=== PATIENT | female | born 2000 | race Caucasian/White ===

== ENCOUNTER 2023-05-28 11:55 | Outpatient (CLI) | payer BC, SELFPAY | END 2023-05-28 11:56 | disposition home or self-care (01) | PROVIDERS: PCP Physician Assistant Medical; Visit Provider Physician Assistant Medical | DX: Z00.00 Encounter for general adult medical examination without abnormal findings (principal); R53.83 Other fatigue; E03.9 Hypothyroidism, unspecified; R42 Dizziness and giddiness | CPT/HCPCS: 80053; 82306; 82607; 84443 ==

== ENCOUNTER 2023-06-17 12:26 | Outpatient (CLI) | payer BC, SELFPAY | END 2023-06-17 12:27 | disposition home or self-care (01) | LOC: NFLDREF 06-20 12:55 | PROVIDERS: PCP Physician Assistant Medical; Referring Provider Physician Assistant Medical; Visit Provider Physician Assistant Medical | DX: K21.9 Gastro-esophageal reflux disease without esophagitis (principal) | CPT/HCPCS: 87338 ==

== ENCOUNTER 2023-07-02 18:43 | Emergency (ER) | payer BC, SELFPAY ==
[2023-07-02 18:56] VITALS: BP 99/68; PULSE 78; RESP 16; TEMP 36.3; O2SAT 99; BMI 28.7
--- NOTE | 2023-07-02 19:21 | CRLHL7_ITS ---
For Patients: As a result of the Cures Act, medical imaging exams and procedure reports are released immediately into your electronic medical record. You may view this report before your referring provider. If you have questions, please contact your health care provider. INDICATION: Chest pain. TECHNIQUE: Chest 2 view. Permanently recorded images are archived. COMPARISON: 04/17/2023 FINDINGS: Cardiovascular and mediastinum: Heart size and vasculature are normal in caliber and appearance. Lungs and pleural spaces: The lungs are clear. No pleural effusion or pneumothorax. Bones and soft tissues: Similar-appearing postoperative changes of extensive posterior spinal fusion. IMPRESSION: No evidence of an acute pulmonary process. Dictated by Otto Miles MD @ 07/02/2023 8:33:40 PM (Electronically Signed)
[2023-07-02 19:38] LABS: Basophils Absolute Auto 0.04 K/uL (0.00-0.30); Basophils Percent Auto 0.6 % (0.0-3.0); Eosinophils Absolute Auto 0.15 K/uL (0.00-0.50); Eosinophils Percent Auto 2.4 % (0.0-7.0); Hematocrit 39.3 % (33.0-51.0); Hemoglobin* 12.5 gm/dL (12.0-16.0); Lymphocytes Absolute Auto 1.65 K/uL (0.90-2.90); Lymphocytes Percent Auto 26.7 % (20-44); Mean Corpuscular HGB Conc 32 gm/dL (32-36); Mean Corpuscular Hemoglobin 30 pg (26-34); Mean Corpuscular Volume 94 fL (80-100); Monocytes Percent Auto 8.9 % (0.0-11.0); Neutrophils Absolute Auto 3.79 K/uL (1.7-7.0); Neutrophils Percent Auto 61.4 % (42.0-72.0); Platelet Count* 228 K/uL (140-440); RDW Coefficient of Variation % 12.6 % (11.5-15.5); Red Blood Count 4.18 m/uL (4.00-5.20); White Blood Count* 6.18 K/uL (4.50-11.00)
[2023-07-02 19:40] LABS: Slide Review Reflex No
[2023-07-02 19:51] LABS: Chloride* 103 mmol/L (96-114)
[2023-07-02 19:52] LABS: Sodium* 140 mmol/L (135-149)
--- NOTE | 2023-07-02 19:52 | ED.GENADULT ---
HPI - General Adult General Date Seen: 07/02/23 Chief complaint: Chest Pain Stated complaint: Chest pain, spreading to jaw and arm Time Seen by Provider: 07/02/23 19:06 Source: patient Mode of arrival: ambulatory Limitations: no limitations History of Present Illness HPI narrative: Patient is a 23-year-old female with history of anxiety, GERD, PCOS, scoliosis presenting to the emergency department for chest pain. She says chest pain is been going on since last at that time she was seen by primary care provider and was given a Holter monitor. She states she is supposed to get the results today but never heard back from them. States has been intermittent in nature it is midsternal with occasional radiation to her left jaw and left arm. She says currently there is no radiation to the jaw but she does feel it in her left arm. Denies ever having symptoms like this before. She is not on any control. She has no history of blood clots or cancer. Has had no recent surgeries or travel. States it is tender to palpation but she does note that the pain was she pushes on it is different. Does have some mild pain with deep breaths. Denies fevers, chills, abdominal pain, nausea, vomiting, weakness, numbness, lightheadedness, dizziness. Related Data Previous Rx's Medication Instructions Recorded hydroxyzine HCl 25 mg tablet 25 - 50 mg (1 - 2 x 25 mg) PO 05/28/23 Q4-6H PRN anxiety #30 tabs bupropion HCl 150 mg 24 hr tablet, 150 mg PO QAM #30 tabs 06/13/23 extended release omeprazole 20 mg capsule,delayed 20 mg PO QDAY #90 caps 06/13/23 release Allergies Allergy/AdvReac Type Severity Reaction Status Date / Time nickel Allergy Verified 07/02/23 19:03 Review of Systems Status of ROS: Reports: 10 or more systems reviewed and unremarkable except as noted in History and below [facility] Medical History Hypothyroidism ?E03.9 - Hypothyroidism, unspecified (ICD-10) Nausea ?R11.0 - Nausea (ICD-10) Constipation ?K59.00 - Constipation, unspecified (ICD-10) Abdominal pain ?R10.9 - Unspecified abdominal pain (ICD-10) Chest pain ?R07.9 - Chest pain, unspecified (ICD-10) History of pilonidal cyst (2016) ?Z87.2 - Personal history of diseases of the skin and subcutaneous tissue (ICD-10) History of metrorrhagia ?Z87.42 - Personal history of other diseases of the female genital tract (ICD-10) Surgical History History of fusion of spine for scoliosis (01/01/18) ?Z98.1 - Arthrodesis status (ICD-10) ?Z87.39 - Personal history of other diseases of the musculoskeletal system and connective tissue (ICD-10) Family History Father Diabetes Coronary artery disease Mother Hx of cholecystectomy Social History Smoking Status: Never smoker Do you use any of these nicotine containing products: None Second hand tobacco smoke exposure: No How often do you have a drink containing alcohol: never AUDIT-C Alcohol total score: 0 Non-prescribed substance use: denies use Little interest or pleasure in doing things: not at all Feeling down, depressed, or hopeless: several days service: No Exam Narrative: Exam Narrative: Const: Well-nourished, Well-developed, in mild distress Eyes: PERRL, no conjunctival injection, and symmetrical lids ENMT: Atraumatic external nose and ears. Moist mucous membranes. Neck: Symmetric, trachea midline, No thyromegaly. CVS: RRR, No murmurs or gallops. Peripheral pulses 2+ and equal in all extremities RESP: Unlabored respiratory effort. Clear to auscultation bilaterally. GI: Nontender/Nondistended, No rebound or guarding. MSK:Extremities w/o deformity, Normal Active ROM. Mild tenderness to palpation of the chest Skin: Warm, Dry. No rashes or lesions. Neuro: Normal Muscle tone, No focal neurological deficits. Psych: Awake, Alert, & Oriented x3. Appropriate mood and affect. Const: Vital Signs, click to edit/add: Vital Signs - 24 hr 07/02/23 18:56 07/02/23 20:32 07/02/23 21:01 Temperature 97.4 F L Pulse Rate 76 78 Pulse Rate [Pulse Oximeter] 78 Respiratory Rate 16 16 16 Blood Pressure 101/68 103/66 Blood Pressure [Ri ght Upper Arm] 99/68 Pulse Oximetry 99 98 96 Oxygen Delivery Me thod Room Air Course Vital Signs Vital signs: Initial Vital Signs Temperature 97.4 F L 07/02/23 18:56 Temperature Source Temporal Artery Scan 07/02/23 18:56 Pulse Rate 78 07/02/23 18:56 Respiratory Rate 16 07/02/23 18:56 Blood Pressure 99/68 07/02/23 18:56 Blood Pressure Mean 78 07/02/23 18:56 Blood Pressure Position Sitting 07/02/23 18:56 Pulse Oximetry 99 07/02/23 18:56 Oxygen Delivery Method Room Air 07/02/23 18:56 Vital Signs Temperature 97.4 F L 07/02/23 18:56 Pulse Rate 78 07/02/23 18:56 Respiratory Rate 16 07/02/23 18:56 Blood Pressure 99/68 07/02/23 18:56 Pulse Oximetry 99 07/02/23 18:56 Oxygen Delivery Method Room Air 07/02/23 18:56 Temperature 97.4 F L 07/02/23 18:56 Pulse Rate 78 07/02/23 21:01 Respiratory Rate 16 07/02/23 21:01 Blood Pressure 103/66 07/02/23 21:01 Pulse Oximetry 96 07/02/23 21:01 Oxygen Delivery Method Room Air 07/02/23 18:56 Medical Decision Making MDM Narrative Medical decision making narrative: Patient is a 23-year-old female presented emergency depart for chest pain. Symptoms have been gone for the past 4 days. She had a Holter monitor and was waiting for the results of it today. Pain has radiated to her left arm and left jaw. Has been intervention in nature but has been more consistent over the past few hours. She has not taken anything for the pain. She also states she has not want any pain medication. She is Perc negative and PE is unlikely so D-dimer was not necessary at this time. CBC, BMP, troponin, EKG are all ordered. Since the pain is almost near her epigastric region also ordered a lipase. EKG returned showing no concerning abnormalities. Chest x-ray showed no concerning abnormalities and pneumothorax is unlikely. Vital signs are stable. Lipase was within normal limits and pancreatitis is unlikely. Patient's lab work ovaries returned showing no concerning abnormalities. Is unclear what was causing chest pain at this time. She does have some tenderness to palpation impression and chest but she states this was not exactly the same. Could be a costochondritis was unlikely to be ACS at this time. She will be discharged home. She is agreeable to this plan. Lab Data Labs: Lab Results 07/02/23 Range/Units 19:30 WBC 6.18 (4.50-11.00) K/uL RBC 4.18 (4.00-5.20) m/uL Hgb 12.5 (12.0-16.0) gm/dL Hct 39.3 (33.0-51.0) % MCV 94 (80-100) fL MCH 30 (26-34) pg MCHC 32 (32-36) gm/dL RDW Coeff of Davey 12.6 (11.5-15.5) % Plt Count 228 (140-440) K/uL Neut % (Auto) 61.4 (42.0-72.0) % Lymph % (Auto) 26.7 (20-44) % Vance % (Auto) 8.9 (0.0-11.0) % Eos % (Auto) 2.4 (0.0-7.0) % Baso % (Auto) 0.6 (0.0-3.0) % Neut # (Auto) 3.79 (1.7-7.0) K/uL Lymph # (Auto) 1.65 (0.90-2.90) K/uL Vance # (Auto) 0.60 (0.00-0.90) K/UL Eos # (Auto) 0.15 (0.00-0.50) K/uL Baso # (Auto) 0.04 (0.00-0.30) K/uL Abs Immat Gran (auto) 0.00 (0.00-0.30) K/uL Imm/Tot Granulo (auto) 0.0 % Sodium 140 (135-149) mmol/L Potassium 4.0 (3.6-5.1) mmol/L Chloride 103 (96-114) mmol/L Carbon Dioxide 29 (20-32) mmol/L Anion Gap 8 (7-15) mEq/L BUN 13 (5-24) mg/dL Creatinine 0.6 (0.5-1.5) mg/dL Estimated Creat Clear 114.35 Estimated GFR 128 ml/min Glucose 89 (60-115) mg/dL Calcium 9.2 (8.4-10.6) mg/dL Troponin I < 0.01 L (0.01-0.04) ng/mL Lipase 102 (23-300) U/L Imaging Data Chest x-ray: Radiologist's impression: INDICATION: Chest pain. TECHNIQUE: Chest 2 view. Permanently recorded images are archived. COMPARISON: 04/17/2023 FINDINGS: Cardiovascular and mediastinum: Heart size and vasculature are normal in caliber and appearance. Lungs and pleural spaces: The lungs are clear. No pleural effusion or pneumothorax. Bones and soft tissues: Similar-appearing postoperative changes of extensive posterior spinal fusion. IMPRESSION: No evidence of an acute pulmonary process. Dictated by Otto Miles MD @ 07/02/2023 8:33:40 PM ECG Data Attestation: I personally reviewed and interpreted this ECG as follows: Prior ECG tracings: available for review (06/28/23) Interpretation: Normal sinus rhythm, rate of 79 beats per minute, normal axis, normal intervals, no ST or T-wave abnormalities. appears similar to previous EKGs Discharge Plan Discharge Clinical Impression: Atypical chest pain Patient Disposition: Home, Self-Care Condition: Stable Instructions: Noncardiac Chest Pain (ED) Additional Instructions: Take Tylenol and ibuprofen for pain. Follow up with the primary care provider about the results of the Holter monitor. Return for new worsening symptoms. Prescriptions: No Action hydroxyzine HCl 25 mg tablet 25 - 50 mg PO Q4-6H PRN (Reason: anxiety) Qty: 30 0RF Hold Instructions: Pt stopped Rx Instructions: take 1-2 tablets every 4-6 hours as needed for anxiety bupropion HCl 150 mg tablet extended release 24 hr 150 mg PO QAM Qty: 30 0RF Hold Instructions: Pt stopped omeprazole 20 mg capsule,delayed release(DR/EC) 20 mg PO QDAY Qty: 90 0RF Hold Instructions: Pt stopped Follow Up/Referrals: Marilia Uriostegui PA-C [Primary Care Provider] - Stand Alone Forms: [facility] Info Instructions
[2023-07-02 19:54] LABS: Creatinine* 0.6 mg/dL (0.5-1.5); Est. Creatinine Clearance* 114.35; Estimated Glomerular Filt Rate 128 ml/min
[2023-07-02 19:55] LABS: Anion Gap 8 mEq/L (7-15); Blood Urea Nitrogen* 13 mg/dL (5-24); Calcium* 9.2 mg/dL (8.4-10.6); Carbon Dioxide* 29 mmol/L (20-32); Glucose* 89 mg/dL (60-115); Lipase* 102 U/L (23-300)
[2023-07-02 20:15] LABS: Troponin I* < 0.01 ng/mL (0.01-0.04)
[2023-07-02 20:32] VITALS: BP 101/68; PULSE 76; RESP 16; O2SAT 98
[2023-07-02 21:01] VITALS: BP 103/66; PULSE 78; RESP 16; O2SAT 96
== END 2023-07-02 21:22 | disposition home or self-care (01) ==
PROVIDERS: Emergency Provider Student in an Organized Health Care Education/Training Program; PCP Physician Assistant Medical
DX: R07.9 Chest pain, unspecified (principal)
CPT/HCPCS: 36415; 71046; 80048; 83690; 84484; 85025; 93005; 99283; 99284

== ENCOUNTER 2023-07-24 13:45 | Outpatient (CLI) | payer BC, SELFPAY ==
[2023-07-24 14:37] VITALS: BP 130/52; PULSE 96; RESP 18
--- NOTE | 2023-07-24 14:45 | W.PM.STED ---
Stress Test Note Date Date of test: 07/24/23 Providers Primary care provider: Marilia Uriostegui Stress test physician: Akshat Martinez Stress Test Note Stress test ordered: Stress Echo Indication for test: Fatigue and Shortness of breath Stress test medicine: None Results discussion: Patient is a very nice 23-year-old female who presents for the above test after discussion the risks benefits and side effects she would like to proceed pretest EKG shows normal sinus rhythm, with a ventricular rate of 67. Cardiac stress test medical history form is reviewed entirely. Following normal Michael protocol patient is exercised for a 10 minute period. EKG portion did not show exactly that she got to target, but I can not tell you that it was not picking up because of artifact, and she did get to target rate of 170. Test is terminated because of fatigue, and leg pain. He conditioning was felt to be good. No evidence of any significant dysrhythmias, there is no evidence of any significant ST wave changes suggestive of ischemia. Impression: Negative electrographic portion of stress echo Follow up suggested: Await echo images, pulmonary read via the tech is negative. Cardiology will review, clinical correlation with this will be needed, patient recovered normally will be discharged following meeting criteria.
== END 2023-07-24 14:42 | disposition home or self-care (01) ==
LOC: STRESS 13:46
PROVIDERS: PCP Physician Assistant Medical; Visit Provider Family Medicine
DX: R07.9 Chest pain, unspecified (principal); R06.02 Shortness of breath; R42 Dizziness and giddiness
CPT/HCPCS: 93016; 93325; 93351

== ENCOUNTER 2023-10-10 14:38 | Outpatient (CLI) | payer BC, SELFPAY | END 2023-10-10 14:39 | disposition home or self-care (01) | PROVIDERS: PCP Physician Assistant Medical; Visit Provider Physician Assistant Medical | DX: R53.83 Other fatigue (principal); D49.89 Neoplasm of unspecified behavior of other specified sites; R10.9 Unspecified abdominal pain; R00.0 Tachycardia, unspecified | CPT/HCPCS: 82728; 83516; 86364; 86617 ==

== ENCOUNTER 2023-10-17 13:48 | Outpatient (CLI) | payer BC, SELFPAY ==
--- NOTE | 2023-10-17 14:00 | CRLHL7_ITS ---
For Patients: As a result of the Century Cures Act, medical imaging exams and procedure reports are released immediately into your electronic medical record. You may view this report before your referring provider. If you have questions, please contact your health care provider. Indication: PALPABLE LUMP Technique: Grayscale and color Doppler ultrasound of the right submandibular region. Comparison: None Findings: Solid circumscribed hypoechoic nodule with posterior shadowing in the subcutaneous tissues measuring 1.2 x 0.7 x 1.0 cm. There may be calcifications associated with this lesion. No abnormal vascularity Impression: 1.2 cm solid nodule located within the subcutaneous fat of the right submandibular space just beneath the skin. ENT referral recommended. Dictated by Tito Nunez MD @ 10/17/2023 2:51:13 PM (Electronically Signed)
== END 2023-10-17 13:49 | disposition home or self-care (01) ==
LOC: US 13:48
PROVIDERS: PCP Physician Assistant Medical; Visit Provider Physician Assistant Medical
DX: R22.1 Localized swelling, mass and lump, neck (principal); D49.89 Neoplasm of unspecified behavior of other specified sites
CPT/HCPCS: 76536

== ENCOUNTER 2023-11-14 10:07 | Outpatient (CLI) | payer BC, SELFPAY ==
--- NOTE | 2023-11-14 10:15 | CRLHL7_ITS ---
For Patients: As a result of the Century Cures Act, medical imaging exams and procedure reports are released immediately into your electronic medical record. You may view this report before your referring provider. If you have questions, please contact your health care provider. INDICATION: swallowing delay, globulus sensation, DYSPHAGIA TECHNIQUE: Modified barium swallow. Fluoroscopic time 63 seconds. FINDINGS/IMPRESSION: Decreased initiation of the swallowing mechanism with discoordination of the tongue. Normal soft palate and epiglottis. No diverticulum or stricture. No obstruction. No episodes of penetration or aspiration. Inability to swallow pill. Dictated by Tito Nunez MD @ 11/14/2023 10:45:05 AM (Electronically Signed)
--- NOTE | 2023-11-14 14:36 | SLP.EVAL ---
Marilia Please review, sign and return. Thank you Yasmin Wheat, CALL OR CONTACT CENTRE COACH CALL OR CONTACT CENTRE COACH Paul Miller Start: 11/14/23 11:02 Freq: Status: Active Protocol: Document 11/14/23 11:02 Klarissa (Rec: 11/14/23 11:19 [facility] [id number]) E-signed By Yasmin Wheat CCC, CALL OR CONTACT CENTRE COACH CALL OR CONTACT CENTRE COACH System Review History & Reason For Referral Type of Speech Evaluation Modified Barium Swallow Evaluation Rehabilitation Order Evaluation Date of Order 11/08/23 Reason for Referral Difficulty swallowing Medical Diagnosis Dysphagia Treatment Diagnosis Dysphagia Vision Information Vision Status Patient wears glasses Patient Orientation Orientation & Mental Status Within normal limits CALL OR CONTACT CENTRE COACH Initial Assessment/POC Subjective Information Subjective/Pain Comment Patient independently ambulated to the xray suite. She is pleasant and cooperative. Assessment & Impression Assessment/Impression Patient is a 23 year old female referred for a modified barium swallow study due to difficulty swallowing. She reports that she mostly has difficulty with liquid. She holds it in her mouth and has difficulty initiating a swallow. She has difficulty also with pills so has gone to either gummies or liquid. She has tried taking pills with pudding but she ends up swallowing the pudding and the pill is still in her mouth. She doesn't notice difficulty with foods. She reports she has fairly severe reflux and sometimes feels burning in her throat. She reports that the swallowing difficulty has been going on since March and denies anything that happened about that time. She had back surgery about 6 years ago. ORAL MOTOR FUNCTION AND DENTITION Patient able to move tongue and lips adequately and has adequate natural dentition. THIN LIQUID Patient tried a couple of trials of thin liquids. Both times she needed to swallow piecemeal 4-6 times to clear. No penetration, aspiration or pharyngeal residue on any trial. MILDLY THICK LIQUID (NECTAR) Mildly thick liquid was trialed to see if the viscosity and weight would help. It did not. She still needed to swallow 4-6 times. PUREE Patient given a teaspoon of puree. She was able to swallow with no penetration, aspiration or residue. MUFFIN AND COOKIE WITH BARIUM PUREE Patient given separate trials of muffin and cookie each mixed with barium puree. She was able to chew and swallow in a timely manner and exhibited no penetration, aspiration or pharyngeal residue. BARIUM PILL WITH PUREE Patient given a barium pill with yogurt. She was able to move the pill posteriorly but was not able to swallow it and spit it out. IMPRESSIONS AND RECOMMENDATIONS Patient exhibits difficulty initiating a swallow with liquids and needs to swallow 4 -6 times to get the bolus down . She was able to initiate a swallow when eating foods. There is no penetration, aspiration or pharyngeal residue with any consistency. No tongue pumping noted. Recommended to patient that she try liquids of different temperatures and different flavors to see if this helps with swallow initiation. She reports that when she chews she is able to start a swallow more easily when she takes liquid while food is in her mouth so recommend she take liquid when taking food. It is unclear why this is happening . Images and recommendations shared with patient. Therapist Signature & License # I Certify That Therapy Services Provided Therapist Signature & License Number Yasmin Wheat, [facility]-CALL OR CONTACT CENTRE COACH, # [id number] Physician Signature Signature of Physician Indicates Medically Needed Services Physician Signature & Date Required Please Sign/Date Here Speech/Language Pathology Billing Units Billing Units Eval Swallow Motion Fluoro 1
== END 2023-11-14 10:08 | disposition home or self-care (01) ==
LOC: RAD 10:09
PROVIDERS: PCP Physician Assistant Medical; Visit Provider Physician Assistant Medical
DX: R13.10 Dysphagia, unspecified (principal)
CPT/HCPCS: 74230; 92611

== ENCOUNTER 2023-11-15 10:23 | Outpatient (RCR) | payer BC, SELFPAY ==
--- NOTE | 2023-11-15 14:13 | SLP.EVAL ---
Marilia Please review, sign and return Thank you Yasmin Wheat, SURVEY ANALYST SURVEY ANALYST Paul Miller Start: 11/15/23 11:22 Freq: Status: Active Protocol: Document 11/15/23 11:23 [facility] (Rec: 11/15/23 11:32 [facility] [id number]) E-signed By Yasmin Wheat, WILI, SURVEY ANALYST SURVEY ANALYST System Review History & Reason For Referral Type of Speech Evaluation Dysphagia Evaluation Rehabilitation Order Evaluation and Treat Onset Date Of Patient's Problem 11/14/23 Medical Diagnosis Dysphagia Treatment Diagnosis Dysphagia Vision Information Vision Status Patient wears glasses. Patient Orientation Orientation & Mental Status Within normal limits SURVEY ANALYST Initial Assessment/POC Subjective Information Subjective/Pain Comment Patient independently ambulated to the therapy room. Assessment & Impression Assessment/Impression Patient is a 23 year old female referred for some swallowing therapy following a modified barium swallow study yesterday completed with this therapist. The barium swallow showed that the pharyngeal swallow was normal and safe and no penetration, aspiration or pharyngeal residue occurred. Patient was able to initiate a swallow with solids but with liquids it was delayed and she needed to swallow 4-6 times to clear the bolus from her mouth. This started in March 2023, first noticed when patient and her mom attended a 4 day outside concert. ORAL MOTOR FUNCTION Patient able to adequately move tongue and lips. There is no evidence of tongue thrusting or tongue incoordination. THIN LIQUID Today she reports that when she drinks liquids it tends to over flow into her cheeks. Tried several different strategies 1) different temperatures 2)different flavors 3)using a straw 4) keeping the bolus contained on her tongue and then swallow. Patient was able to initiate a swallow more quickly by using a straw and by containing the bolus on her tongue. IMPRESSIONS AND RECOMMENDATIONS Patient was able to initiate a swallow more quickly and with one swallow by using a straw and/or by containing the bolus on her tongue vs letting it flow over into her cheeks before swallowing. These techniques were practiced several times and patient felt confident in doing them herself. Will follow up with patient by phone in one week. Functional Limitations & Outcome/Goals Goals/Functional Outcomes Patient will be able to initiate a swallow with liquids without needing to swallow multiple times. Intervention Plan & Frequency Intervention Plan Several strategies were trialed and the two that seemed to work the best were using a straw and thinking about keeping the bolus in the center of her mouth instead of letting it flow over to her cheeks. With both those strategies she was able to swallow the bolus in one swallow and initiated a swallow faster. These strategies were practiced several times and patient felt confident to do them on her own. Will follow up with patient by phone at the end of next week . Therapist Signature & License # I Certify That Therapy Services Provided Therapist Signature & License Number Yasmin Wheat, [facility], # [id number] Physician Signature Signature of Physician Indicates Medically Needed Services Physician Signature & Date Required Please Sign/Date Here Speech/Language Pathology Billing Units Billing Units Treat Swallow Dysfunction 1
== END 2024-03-14 23:59 | disposition home or self-care (01) ==
PROVIDERS: PCP Physician Assistant Medical; Visit Provider Physician Assistant Medical
DX: R13.10 Dysphagia, unspecified (principal); Z51.89 Encounter for other specified aftercare
CPT/HCPCS: 92526

== ENCOUNTER 2023-12-04 07:41 | Outpatient (CLI) | payer BC, SELFPAY ==
--- NOTE | 2023-12-04 08:55 | W.ANESCHARGE ---
Anesthesia Charges Start Date/Time Anesthesia Start Date: 12/04/23 Anesthesia Start Time: 08:30 Stop Date/Time Anesthesia Stop Date: 12/04/23 Anesthesia Stop Time: 08:47
--- NOTE | 2023-12-04 09:41 | W.ANESCHARGE ---
Anesthesia Charges Start Date/Time Anesthesia Start Date: 12/04/23 Anesthesia Start Time: 08:30 Stop Date/Time Anesthesia Stop Date: 12/04/23 Anesthesia Stop Time: 08:47
== END 2023-12-04 07:42 | disposition home or self-care (01) ==
LOC: OP CLINIC 07:42
PROVIDERS: PCP Physician Assistant Medical; Visit Provider Internal Medicine
DX: R12 Heartburn (principal); R10.13 Epigastric pain
CPT/HCPCS: 00731; 43239; 88305; J2704

== ENCOUNTER 2023-12-17 09:08 | Outpatient (CLI) | payer BC, SELFPAY | END 2023-12-17 09:09 | disposition home or self-care (01) | LOC: NFLDREF 12-19 11:34 | PROVIDERS: PCP Physician Assistant Medical; Referring Provider Physician Assistant Medical; Visit Provider Physician Assistant Medical | DX: R10.2 Pelvic and perineal pain (principal) | CPT/HCPCS: 87086 ==

== ENCOUNTER 2024-01-21 11:09 | Outpatient (CLI) | payer BC, SELFPAY | END 2024-01-21 11:10 | disposition home or self-care (01) | PROVIDERS: PCP Physician Assistant Medical; Visit Provider Physician Assistant Medical | DX: R00.0 Tachycardia, unspecified (principal) | CPT/HCPCS: 82088; 82533; 83835 ==

== ENCOUNTER 2024-02-19 00:18 | Emergency (ER) | payer BC, SELFPAY ==
[2024-02-19] VITALS (22 sets, daily range): BP systolic 104–117; BP diastolic 52–75; PULSE 46–67; RESP 16–18; TEMP 36.5; O2SAT 95–98; BMI 32.0
--- NOTE | 2024-02-19 00:34 | ED_ITS ---
HPI - General Adult General Chief complaint: Chest Pain Stated complaint: chest pain Time Seen by Provider: 02/19/24 00:20 History of Present Illness HPI narrative: patient reports chest pain starting around 2300, also feels dizzy. denies SOB or diaphoresis, has in the past had chest pain that usually just resolves on its own, has never been dx with any cardiac problems. pain is in med chest , constant, pressure, rated 8/10. recently started on prednisone and albuterol for bronchitis, seen at [facility] last sunday. 23 year old young woman presenting with her father with concern of mid chest pressure that has been ongoing now for a couple of hours. Was seen with some cough symptoms and chest pain 2 and half days ago and was given a course of prednisone with diagnosis of bronchitis. Reports few months ago having had a stress test. Over the last year has been experiencing intermittent episodes of chest pain. Which she is feeling today that was different ?never like this?. She is frequently lightheaded. Review of records would indicate some positional lightheadedness. She is currently unemployed and working around the home though causes her to feel particularly fatigued. She has been more troubled by this over the last couple of days. Denies a history of anemia. Menses are not unusually heavy. She does note that her heart rate has been today as noted by her watch to be going below 40. She has had heart rates around 45 or so before. No leg pain or swelling. She does acknowledge that she has passed out a few times in the past. Nothing recent. She suspect often has simply been dehydrated noting that she has trouble getting enough fluids in. Father notes family history positive for cardiovascular disease and an uncle maybe with valvular replacement. No sudden cardiac or arrhythmias. Related Data Previous Rx's Medication Instructions Recorded hydroxyzine HCl 25 mg tablet 25 - 50 mg (1 - 2 x 25 mg) PO 05/28/23 Q4-6H PRN anxiety #30 tabs omeprazole 20 mg capsule,delayed 20 mg PO QDAY #90 caps 10/17/23 release dexamethasone 1 mg tablet 1 mg PO QDAY #1 tab 02/05/24 norelgestromin 150 mcg-e.estradiol 1 patch transdermal Q7D #3 ea 02/08/24 35 mcg/24 hr weekly transderm patch (Xulane) albuterol sulfate 90 mcg/actuation 2 puff inhalation Q6H PRN 02/15/24 aerosol inhaler shortness of breath or wheezing #6.7 grams amoxicillin 400 mg/5 mL oral 800 mg (10 mL) PO BID #200 mL 02/15/24 suspension cetirizine 10 mg chewable tablet 10 mg PO QDAY PRN allergy symptoms 02/15/24 (Zyrtec) #30 tabs prednisone 20 mg tablet 20 mg PO BID #10 tabs 02/15/24 Allergies Allergy/AdvReac Type Severity Reaction Status Date / Time nickel Allergy Verified 02/15/24 11:30 Review of Systems Status of ROS: Reports: 6 or more systems reviewed and unremarkable except as noted in History and below [facility] Medical History Hypothyroidism ?E03.9 - Hypothyroidism, unspecified (ICD-10) Nausea ?R11.0 - Nausea (ICD-10) Constipation ?K59.00 - Constipation, unspecified (ICD-10) Abdominal pain ?R10.9 - Unspecified abdominal pain (ICD-10) Chest pain ?R07.9 - Chest pain, unspecified (ICD-10) History of pilonidal cyst (2016) ?Z87.2 - Personal history of diseases of the skin and subcutaneous tissue (ICD-10) History of metrorrhagia ?Z87.42 - Personal history of other diseases of the female genital tract (ICD-10) Surgical History History of fusion of spine for scoliosis (01/01/18) ?Z98.1 - Arthrodesis status (ICD-10) ?Z87.39 - Personal history of other diseases of the musculoskeletal system and connective tissue (ICD-10) Family History Father Diabetes Coronary artery disease Mother Hx of cholecystectomy Social History Smoking Status: Never smoker Do you use any of these nicotine containing products: None Second hand tobacco smoke exposure: No How often do you have a drink containing alcohol: never AUDIT-C Alcohol total score: 0 Non-prescribed substance use: denies use Little interest or pleasure in doing things: several days Feeling down, depressed, or hopeless: not at all service: No Exam Narrative: Exam Narrative: Pleasant. Seems tired. A little slower in communication simply as if fatigued. Hair is bright pink. Piercing in the nasal septum. Skin is warm and dry without apparent rash. Extremities are without edema. She is well-perfused. Cranial nerves 2-12 intact. Subjectively lightheaded or wanting to lay back down when I asked her to sit up. Heart is bradycardic or slowed regular rhythm. There is a split S2. No murmur. Abdomen is soft and nontender. Lungs are clear. She is sore to palpation in the mid sternum but indicates that pain is not exclusive to this spot. Back is with extensive midline surgical scar--reportedly from surgical correction of scoliosis Const: Vital Signs, click to edit/add: Vital Signs - 24 hr 02/19/24 00:30 02/19/24 01:02 02/19/24 01:20 Temperature 97.7 F Pulse Rate Pulse Rate [Pulse Oximeter] 54 L Pulse Rate [orthos tatic lying Right Pulse Oximeter] 57 L Pulse Rate [orthos tatic sitting Righ t Pulse Oximeter] 53 L Pulse Rate [orthos tatic standing Rig ht Pulse Oximeter] 62 Respiratory Rate 16 Blood Pressure Blood Pressure [Ri ght Upper Arm] 117/75 Blood Pressure [or thostatic lying Le ft Arm] 107/67 Blood Pressure [or thostatic sitting Left Arm] 111/64 Blood Pressure [or thostatic standing Left Arm] 104/63 Pulse Oximetry 97 97 Oxygen Delivery Me thod Room Air 02/19/24 01:29 02/19/24 01:30 02/19/24 01:31 Temperature Pulse Rate 58 L 50 L 53 L Pulse Rate [Pulse Oximeter] Pulse Rate [orthos tatic lying Right Pulse Oximeter] Pulse Rate [orthos tatic sitting Righ t Pulse Oximeter] Pulse Rate [orthos tatic standing Rig ht Pulse Oximeter] Respiratory Rate 18 Blood Pressure 107/63 Blood Pressure [Ri ght Upper Arm] Blood Pressure [or thostatic lying Le ft Arm] Blood Pressure [or thostatic sitting Left Arm] Blood Pressure [or thostatic standing Left Arm] Pulse Oximetry 96 96 95 Oxygen Delivery Me thod Room Air 02/19/24 01:32 02/19/24 01:45 02/19/24 01:50 Temperature Pulse Rate 53 L 58 L 56 L Pulse Rate [Pulse Oximeter] Pulse Rate [orthos tatic lying Right Pulse Oximeter] Pulse Rate [orthos tatic sitting Righ t Pulse Oximeter] Pulse Rate [orthos tatic standing Rig ht Pulse Oximeter] Respiratory Rate Blood Pressure Blood Pressure [Ri ght Upper Arm] Blood Pressure [or thostatic lying Le ft Arm] Blood Pressure [or thostatic sitting Left Arm] Blood Pressure [or thostatic standing Left Arm] Pulse Oximetry 95 96 97 Oxygen Delivery Me thod 02/19/24 01:55 02/19/24 02:02 02/19/24 02:03 Temperature Pulse Rate 57 L 67 55 L Pulse Rate [Pulse Oximeter] Pulse Rate [orthos tatic lying Right Pulse Oximeter] Pulse Rate [orthos tatic sitting Righ t Pulse Oximeter] Pulse Rate [orthos tatic standing Rig ht Pulse Oximeter] Respiratory Rate Blood Pressure 107/52 L Blood Pressure [Ri ght Upper Arm] Blood Pressure [or thostatic lying Le ft Arm] Blood Pressure [or thostatic sitting Left Arm] Blood Pressure [or thostatic standing Left Arm] Pulse Oximetry 98 95 96 Oxygen Delivery Me thod 02/19/24 02:05 02/19/24 02:26 02/19/24 02:30 Temperature Pulse Rate 56 L 59 L 56 L Pulse Rate [Pulse Oximeter] Pulse Rate [orthos tatic lying Right Pulse Oximeter] Pulse Rate [orthos tatic sitting Righ t Pulse Oximeter] Pulse Rate [orthos tatic standing Rig ht Pulse Oximeter] Respiratory Rate Blood Pressure Blood Pressure [Ri ght Upper Arm] Blood Pressure [or thostatic lying Le ft Arm] Blood Pressure [or thostatic sitting Left Arm] Blood Pressure [or thostatic standing Left Arm] Pulse Oximetry 95 96 97 Oxygen Delivery Me thod 02/19/24 02:34 02/19/24 02:45 02/19/24 03:00 Temperature Pulse Rate 60 55 L 46 L Pulse Rate [Pulse Oximeter] Pulse Rate [orthos tatic lying Right Pulse Oximeter] Pulse Rate [orthos tatic sitting Righ t Pulse Oximeter] Pulse Rate [orthos tatic standing Rig ht Pulse Oximeter] Respiratory Rate Blood Pressure Blood Pressure [Ri ght Upper Arm] Blood Pressure [or thostatic lying Le ft Arm] Blood Pressure [or thostatic sitting Left Arm] Blood Pressure [or thostatic standing Left Arm] Pulse Oximetry 98 96 96 Oxygen Delivery Me thod 02/19/24 03:04 02/19/24 03:05 02/19/24 03:37 Temperature Pulse Rate 48 L 48 L 58 L Pulse Rate [Pulse Oximeter] Pulse Rate [orthos tatic lying Right Pulse Oximeter] Pulse Rate [orthos tatic sitting Righ t Pulse Oximeter] Pulse Rate [orthos tatic standing Rig ht Pulse Oximeter] Respiratory Rate Blood Pressure Blood Pressure [Ri ght Upper Arm] Blood Pressure [or thostatic lying Le ft Arm] Blood Pressure [or thostatic sitting Left Arm] Blood Pressure [or thostatic standing Left Arm] Pulse Oximetry 96 96 97 Oxygen Delivery Me thod Room Air 02/19/24 03:45 Temperature Pulse Rate 54 L Pulse Rate [Pulse Oximeter] Pulse Rate [orthos tatic lying Right Pulse Oximeter] Pulse Rate [orthos tatic sitting Righ t Pulse Oximeter] Pulse Rate [orthos tatic standing Rig ht Pulse Oximeter] Respiratory Rate Blood Pressure Blood Pressure [Ri ght Upper Arm] Blood Pressure [or thostatic lying Le ft Arm] Blood Pressure [or thostatic sitting Left Arm] Blood Pressure [or thostatic standing Left Arm] Pulse Oximetry 98 Oxygen Delivery Me thod Documenting provider has reviewed patient's vital signs: yes Course Vital Signs Vital signs: Initial Vital Signs Temperature 97.7 F 02/19/24 00:30 Temperature Source Temporal Artery Scan 02/19/24 00:30 Pulse Rate 54 L 02/19/24 00:30 Respiratory Rate 16 02/19/24 00:30 Respiratory Effort Normal, Spontaneous, Non-Labored 02/19/24 00:30 Respiratory Depth Normal 02/19/24 00:30 Respiratory Pattern Normal 02/19/24 00:30 Blood Pressure 117/75 02/19/24 00:30 Blood Pressure Mean 89 02/19/24 00:30 Blood Pressure Position Supine 02/19/24 00:30 Pulse Oximetry 97 02/19/24 00:30 Oxygen Delivery Method Room Air 02/19/24 00:30 Vital Signs Temperature 97.7 F 02/19/24 00:30 Pulse Rate 54 L 02/19/24 00:30 Respiratory Rate 16 02/19/24 00:30 Blood Pressure 117/75 02/19/24 00:30 Pulse Oximetry 97 02/19/24 00:30 Oxygen Delivery Method Room Air 02/19/24 00:30 Temperature 97.7 F 02/19/24 00:30 Pulse Rate 54 L 02/19/24 03:45 Respiratory Rate 18 02/19/24 01:29 Blood Pressure 107/52 L 02/19/24 02:03 Pulse Oximetry 98 02/19/24 03:45 Oxygen Delivery Method Room Air 02/19/24 03:05 Medications Administered Medications: Discontinued Medications Generic Name Dose Route Start Last Admin Trade Name Misa PRN Reason Stop Dose Admin Sodium Chloride 1,000 mls @ 1,000 mls/hr 02/19/24 01:01 02/19/24 03:20 0.9 % Sodium Chloride 1000 Ml IV 02/19/24 02:00 Infused .Q1H ONE Infusion Medical Decision Making MDM Narrative Medical decision making narrative: Prior to seeing Elvia I have seen her EKG. Reviewed by me does indeed show sinus bradycardia. There is 1 probably PVC. Otherwise a narrow complex. Rate is 58. Will be watching on monitor. Will do orthostatics. Further review of records. Check labs. IV hydration. She does not feel that she needs any treatment for her discomfort at this time. A number of symptoms as noted today have been diagnosed in the past on my review of records. In July of this last year did have a reassuring stress echocardiogram. Did not reach maximal level of expected exertion. Was fatigued and short of breath reaching about low 80% of predicted. Has also had Holter monitoring. With no findings to correlate with symptoms per reports. Has had tilt-table evaluation. Unclear neurological conclusion. Pending follow-up with Neurology our in 2-3 weeks. Measurements of aldosterone and cortisol levels look to be normal as well done couple of months ago. Normal EGD in November 2023 Orthostatics are reviewed and are normal. She reports feeling slightly dizzy with them. Pulse remains generally upper 50s to 60s. Stable blood pressures. Major concern seems to be potential cardiovascular problem. Other than bradycardia, no evidence of cardiovascular problem in labs or monitoring. Concern by Davina I think particularly that possibly the bradycardia is related to the chest pain. I think this is less likely. I would discuss for with [facility] with whom she has a relationship; has been seen in clinic once. Labs are reassuring here today. See patient discharge plan Followed up later in conversation with Cardiology on-call. They are in agreement with plan as noted in discharge for longer monitoring. Uncertain what to make of bradycardia as measured on watch. Chest pain of unclear etiology; likely not related to bradycardia. Medical Records Medical records reviewed: Yes I reviewed the patient's medical records Lab Data Lab results reviewed: Yes I reviewed the patient's lab results Labs: Lab Results 02/19/24 Range/Units 01:20 WBC 9.95 (4.50-11.00) K/uL RBC 3.93 L (4.00-5.20) m/uL Hgb 11.7 L (12.0-16.0) gm/dL Hct 36.6 (33.0-51.0) % MCV 93 (80-100) fL MCH 30 (26-34) pg MCHC 32 (32-36) gm/dL RDW Coeff of Davey 12.1 (11.5-15.5) % Plt Count 275 (140-440) K/uL Neut % (Auto) 65.2 (42.0-72.0) % Lymph % (Auto) 23.9 (20-44) % [place] % (Auto) 10.1 (0.0-11.0) % Eos % (Auto) 0.3 (0.0-7.0) % Baso % (Auto) 0.1 (0.0-3.0) % Neut # (Auto) 6.49 (1.7-7.0) K/uL Lymph # (Auto) 2.38 (0.90-2.90) K/uL [place] # (Auto) 1.00 H (0.00-0.90) K/UL Eos # (Auto) 0.03 (0.00-0.50) K/uL Baso # (Auto) 0.01 (0.00-0.30) K/uL Abs Immat Gran (auto) 0.04 (0.00-0.30) K/uL Imm/Tot Granulo (auto) 0.4 % D-Dimer Quant (PE/DVT) 0.44 (0.00-0.50) ug/ml Sodium 137 (135-149) mmol/L Potassium 3.8 (3.6-5.1) mmol/L Chloride 104 (96-114) mmol/L Carbon Dioxide 28 (20-32) mmol/L Anion Gap 5 L (7-15) mEq/L BUN 17 (5-24) mg/dL Creatinine 0.6 (0.5-1.5) mg/dL Estimated Creat Clear 114.35 Estimated GFR 128 ml/min Glucose 99 (60-115) mg/dL Calcium 9.4 (8.4-10.6) mg/dL Magnesium 2.0 (1.5-2.6) mg/dL Total Bilirubin 0.2 (0.1-1.5) mg/dL Direct Bilirubin 0.0 (0.0-0.5) mg/dL AST 28 (12-35) U/L ALT 26 (4-35) U/L Alkaline Phosphatase 72 (40-150) U/L Troponin I < 0.01 L (0.01-0.04) ng/mL C-Reactive Protein < 0.5 L (0.5-1.0) mg/dL NT-Pro-B Natriuret Pep 143 pg/mL Total Protein 7.5 (6.0-8.3) g/dL Albumin 4.1 (3.3-5.0) g/dL TSH 2.040 (0.270-4.20) uIU/mL POC Troponin I 0.00 L (0.01-0.04) ng/ml Discharge Plan Discharge Clinical Impression: Lightheadedness, Bradycardia Patient Disposition: Home w/ Parent or Adult Condition: Improved Additional Instructions: I am happy you are feeling better; reassured. Return for persisted, increasing lightheadedness, escalating chest pain or shortness of breath. Without further symptoms in your sinuses or cough, yes, I would stop your prednisone at this point. I will call you in the morning after I speak with [facility] about further recommendations. This might include longer term cardiac monitoring with, for example, a ZIO patch prescribed by your primary or Cardiology. Otherwise follow-up with neurology as scheduled. Prescriptions: No Action prednisone 20 mg tablet 20 mg PO BID Qty: 10 0RF amoxicillin 400 mg/5 mL suspension for reconstitution 800 mg PO BID Qty: 200 0RF albuterol sulfate 90 mcg/actuation HFA aerosol inhaler 2 puff inhalation Q6H PRN (Reason: shortness of breath or wheezing) Qty: 6.7 2RF cetirizine [Zyrtec] 10 mg tablet,chewable 10 mg PO QDAY PRN (Reason: allergy symptoms) Qty: 30 2RF hydroxyzine HCl 25 mg tablet 25 - 50 mg PO Q4-6H PRN (Reason: anxiety) Qty: 30 0RF Hold Instructions: Pt stopped Rx Instructions: take 1-2 tablets every 4-6 hours as needed for anxiety omeprazole 20 mg capsule,delayed release(DR/EC) 20 mg PO QDAY Qty: 90 1RF dexamethasone 1 mg tablet 1 mg PO QDAY Qty: 1 0RF Rx Instructions: take one tablet 8 hours prior to lab test. Xulane 150-35 mcg/24 hr patch weekly 1 patch transdermal Q7D Qty: 3 0RF Rx Instructions: apply once weekly for 3 weeks of a 4-week cycle Follow Up/Referrals: Marilia Uriostegui PA-C [Primary Care Provider] - Stand Alone Forms: [facility] Info Instructions
--- NOTE | 2024-02-19 01:02 | XR_ITS ---
Patient: MONTANA CONNER Facility:?[facility] Patient ID:?[id number] Site Patient ID:?[id number]. Site :?1999 Study:?XRay-Chest PORTABLE-02/19/2024 2:04:32 AM Ordering Physician:CHRIS Final Report: INDICATION: Chest pressure, bradycardia, orthostatic lightheadedness TECHNIQUE: Chest radiograph 1 view COMPARISON: 07/02/2023 FINDINGS: Mediastinum: The mediastinum is normal in appearance. The heart silhouette is normal in size and morphology. Lung: Both lungs are unremarkable in appearance. No sign of pleural effusion seen. No pneumothorax is identified. Bone and Soft tissue: Mild dextroscoliosis with moy stabilization noted without interval change. IMPRESSION: 1. No acute cardiopulmonary disease is seen. Dictated by Connor Pena MD @ 02/19/2024 2:07:02 AM Dictated by: Connor Pena MD @ 02/19/2024 02:07:06 Signed by:Goldie Pena MD @02/19/2024 2:07:06 AM (Electronic Signature)
[2024-02-19] MEDS: 0.9 % SODIUM CHLORIDE 1000 ml 1,000 ML IV (01:25)
[2024-02-19 01:40] LABS: Basophils Absolute Auto 0.01 K/uL (0.00-0.30); Basophils Percent Auto 0.1 % (0.0-3.0); Eosinophils Absolute Auto 0.03 K/uL (0.00-0.50); Eosinophils Percent Auto 0.3 % (0.0-7.0); Hematocrit 36.6 % (33.0-51.0); Hemoglobin* 11.7 gm/dL (12.0-16.0); Immature Granulocytes Abs Auto 0.04 K/uL (0.00-0.30); Immature Granulocytes Pct Auto 0.4 %; Lymphocytes Absolute Auto 2.38 K/uL (0.90-2.90); Lymphocytes Percent Auto 23.9 % (20-44); Mean Corpuscular HGB Conc 32 gm/dL (32-36); Mean Corpuscular Hemoglobin 30 pg (26-34); Mean Corpuscular Volume 93 fL (80-100); Monocytes Percent Auto 10.1 % (0.0-11.0); Neutrophils Absolute Auto 6.49 K/uL (1.7-7.0); Neutrophils Percent Auto 65.2 % (42.0-72.0); Platelet Count* 275 K/uL (140-440); RDW Coefficient of Variation % 12.1 % (11.5-15.5); Red Blood Count 3.93 m/uL (4.00-5.20); White Blood Count* 9.95 K/uL (4.50-11.00)
[2024-02-19 01:41] LABS: Slide Review Reflex No
[2024-02-19 01:52] LABS: Albumin* 4.1 g/dL (3.3-5.0); Chloride* 104 mmol/L (96-114); Sodium* 137 mmol/L (135-149)
[2024-02-19 01:53] LABS: Potassium* 3.8 mmol/L (3.6-5.1)
[2024-02-19 01:54] LABS: Creatinine* 0.6 mg/dL (0.5-1.5); Est. Creatinine Clearance* 114.35; Estimated Glomerular Filt Rate 128 ml/min
[2024-02-19 01:55] LABS: Alanine Aminotransferase* 26 U/L (4-35); Alkaline Phosphatase* 72 U/L (40-150); Anion Gap 5 mEq/L (7-15); Aspartate Amino Transferase* 28 U/L (12-35); Bilirubin Total* 0.2 mg/dL (0.1-1.5); Blood Urea Nitrogen* 17 mg/dL (5-24); Carbon Dioxide* 28 mmol/L (20-32); Total Protein* 7.5 g/dL (6.0-8.3)
[2024-02-19 01:56] LABS: Calcium* 9.4 mg/dL (8.4-10.6); Glucose* 99 mg/dL (60-115)
[2024-02-19 01:57] LABS: D Dimer Quantitative* 0.44 ug/ml (0.00-0.50)
[2024-02-19 02:02] LABS: C Reactive Protein* < 0.5 mg/dL (0.5-1.0)
[2024-02-19 02:09] LABS: NT Pro B Type NatriureticPept* 143 pg/mL; Troponin I* < 0.01 ng/mL (0.01-0.04)
== END 2024-02-19 03:58 | disposition home or self-care (01) ==
PROVIDERS: Emergency Provider Family Medicine; PCP Physician Assistant Medical
DX: R42 Dizziness and giddiness (principal); R00.1 Bradycardia, unspecified
CPT/HCPCS: 36415; 71045; 80048; 80076; 83735; 83880; 84443; 84484; 85025; 85379; 86140; 94761; 99284; J7030

== ENCOUNTER 2024-02-27 09:13 | Outpatient (CLI) | payer BC, SELFPAY | END 2024-02-27 09:14 | disposition home or self-care (01) | PROVIDERS: PCP Physician Assistant Medical; Visit Provider Physician Assistant Medical | DX: R79.89 Other specified abnormal findings of blood chemistry (principal); R53.83 Other fatigue | CPT/HCPCS: 82024; 82533; 82652 ==

== ENCOUNTER 2024-03-03 10:47 | Outpatient (CLI) | payer BC, SELFPAY ==
[2024-03-03 23:31] LABS: Chlamydia DNA Amplified* NOT DETECTED (No Detected); GC DNA Amplified* NOT DETECTED (No Detected)
== END 2024-03-03 10:48 | disposition home or self-care (01) ==
LOC: LKVREF 10:48
PROVIDERS: PCP Physician Assistant Medical; Visit Provider Physician Assistant
DX: N89.8 Other specified noninflammatory disorders of vagina (principal)
CPT/HCPCS: 87491; 87591

== ENCOUNTER 2024-03-06 07:46 | Outpatient (CLI) | payer BC, SELFPAY ==
--- NOTE | 2024-03-06 08:00 | CT_ITS ---
Patient: MONTANA CONNER Facility:?[facility] Patient ID:?[id number] Site Patient ID:?[id number]. Site :?1999 Study:?CT-Abdomen/Pelvis W/ and W/O Cont 84cc [id number]/25/2024 8:27:17 AM Ordering Physician:?Marilia Uriostegui Final Report: Indication: Hypopituitarism Technique: Noncontrast CT abdomen. Postcontrast CT abdomen and pelvis. 84 cc Isovue 370 intravenous contrast. Please note that all CT scans at this facility use dose modulation, iterative reconstruction, and/or weight-based dosing when appropriate to reduce radiation dose to as low as reasonably achievable. Comparison: CT 09/09/2020 Findings: The noncontrast enhanced images reveal normal adrenal glands without nodularity. The postcontrast enhanced images also demonstrate normal morphology and size of the adrenal glands. Normal kidneys. No intrahepatic mass. The gallbladder is normal. Normal pancreas. The spleen is within normal limits. Normal appendix. Ovaries are within normal limits. No adenopathy. Uterus normal. Normal bladder. No bowel obstruction or free air. No free fluid or abscess. Scoliotic deformity with postop changes involving the thoracolumbar fusion. Lung bases are clear. No vertebral body compression fracture. Impression: No suspicious findings. No soft tissue mass or adrenal pathology. Please note that all CT scans at this facility use dose modulation, iterative reconstruction, and/or weight-based dosing when appropriate to reduce radiation dose to as low as reasonably achievable. Dictated by Tito Nunez MD @ 03/06/2024 9:32:08 AM Signed by:?Tito Nunez MD @03/06/2024 9:32:08 AM (Electronic Signature)
== END 2024-03-06 07:47 | disposition home or self-care (01) ==
LOC: CT 07:47
PROVIDERS: PCP Physician Assistant Medical; Visit Provider Physician Assistant Medical
DX: E23.0 Hypopituitarism (principal); R79.89 Other specified abnormal findings of blood chemistry
CPT/HCPCS: 74178; Q9967

== ENCOUNTER 2024-05-06 17:16 | Emergency (ER) | payer BC, SELFPAY ==
[2024-05-06 17:19] VITALS: BP 123/78; PULSE 74; RESP 18; TEMP 36.4; O2SAT 99; BMI 32.0
--- NOTE | 2024-05-06 17:51 | CRLHL7_ITS ---
For Patients: As a result of the Cures Act, medical imaging exams and procedure reports are released immediately into your electronic medical record. You may view this report before your referring provider. If you have questions, please contact your health care provider. INDICATION: Shortness of breath. TECHNIQUE: Chest 2 views. COMPARISON: February 19, 2024. FINDINGS: Cardiovascular and mediastinum: Cardiomediastinal silhouette is within normal limits. Lungs and pleural spaces: Lungs are clear. No sign of pleural effusion. No pneumothorax. Bones and soft tissues: Redemonstrated thoracic spine fixation. Orthopedic hardware appears to be in appropriate alignment without evidence of hardware fracture or loosening. IMPRESSION: No acute findings and no significant change from the prior exam. Dictated by Alondra Godfrey MD @ 05/06/2024 6:27:33 PM (Electronically Signed)
--- NOTE | 2024-05-06 17:59 | ED_ITS ---
HPI - SOB/Dyspnea General Chief Complaint: Shortness of Breath/Dyspnea Stated Complaint: shortness of breath Time Seen by Provider: 05/06/24 17:23 History of Present Illness HPI Narrative: This 23-year-old female comes in reporting feeling of shortness of breath. She states that this is been present in the last week or more and seems to be worse. She states that she had albuterol from when she had bronchitis and tried this medicine but it seemed to make things worse. She arrives here with normal vital signs and is able to speak in complete sentences without any use of accessory muscles or difficulty with breathing. She does not report any cough or fevers. She states that she has had an endoscopy and is scheduled to have a swallow study as she has had symptoms with swallowing over the past year or so. She has previous report of shortness of breath. Actually her problem list is very long and she states that she just had an MRI of her head done yesterday to rule out MS. She is not having any symptoms currently. She states that she would like an x-ray simply to rule out a pneumonia. She reports a history of scoliosis and states that she had rods placed surgically to stabilize this about 5 years ago. Related Data Home Medications ?Medication ?Instructions ?Recorded ?Confirmed omeprazole 20 mg capsule,delayed 20 mg PO QDAY 04/28/24 04/28/24 release Previous Rx's ?Medication ?Instructions ?Recorded hydroxyzine HCl 25 mg tablet 25 - 50 mg (1 - 2 x 25 mg) PO 05/28/23 Q4-6H PRN anxiety #30 tabs albuterol sulfate 90 mcg/actuation 2 puff inhalation Q6H PRN 02/15/24 aerosol inhaler shortness of breath or wheezing #6.7 grams norelgestromin 150 mcg-e.estradiol 1 patch transdermal Q7D #9 ea 03/07/24 35 mcg/24 hr weekly transderm patch (Xulane) methylprednisolone 4 mg tablets in See Rx Instructions PO .COMPLEX 05/06/24 a dose pack (Medrol (Avery)) #21 ea Allergies Allergy/AdvReac Type Severity Reaction Status Date / Time nickel Allergy Verified 05/06/24 17:23 Review of Systems Status of ROS: Reports: 10 or more systems reviewed and unremarkable except as noted in History and below Narrative: Constitutional: No fevers, no weight gain or loss. Eyes: No discharge. No vision changes. HENT: No congestion, no sore throat, no ear pain. Cardiovascular: No chest pain, no palpitations. Respiratory: No wheezes, no cough. She reports shortness of breath Gastrointestinal: No abdominal pain, no vomiting, no diarrhea. Genitourinary: No dysuria, no hematuria. Musculoskeletal: Normal range of motion. Skin: No rashes, no pruritis. Neurological: No dizziness, weakness, sensory change, speech change. Endo/Heme/Allergies: No bruising or bleeding. No polydipsia. Pysch: no suicidality, no anxiety, no insomnia. All other systems reviewed and are negative. [facility] Medical History Hypothyroidism ?E03.9 - Hypothyroidism, unspecified (ICD-10) Nausea ?R11.0 - Nausea (ICD-10) Constipation ?K59.00 - Constipation, unspecified (ICD-10) Abdominal pain ?R10.9 - Unspecified abdominal pain (ICD-10) Chest pain ?R07.9 - Chest pain, unspecified (ICD-10) History of pilonidal cyst (2016) ?Z87.2 - Personal history of diseases of the skin and subcutaneous tissue (ICD-10) History of metrorrhagia ?Z87.42 - Personal history of other diseases of the female genital tract (ICD-10) Surgical History History of fusion of spine for scoliosis (01/01/18) ?Z98.1 - Arthrodesis status (ICD-10) ?Z87.39 - Personal history of other diseases of the musculoskeletal system and connective tissue (ICD-10) Family History Father Diabetes Coronary artery disease Mother Hx of cholecystectomy Social History (Updated 04/02/24 @ 14:58 by Obdulia Sanford ~ [facility]) What is your current living situation?: I presently have a place to live Problems where you live: no known problems In the past 12 months, utilities in danger of being shut off: no In past 12 months, lack of transportation kept you from medical appts, meetings, work, or getting things needed for daily living: no In the past 12 mos, have been you worried that your food would run out before you had money to buy more?: never true In the past 12 mos, the food you bought just didn't last and you didn't have money to buy more?: never true Smoking Status: Never smoker Do you use any of these nicotine containing products: None Second hand tobacco smoke exposure: No How often do you have a drink containing alcohol: never AUDIT-C Alcohol total score: 0 Non-prescribed substance use: denies use How often does anyone, including family, friends and others, physically hurt you : never How often does anyone, including family, friends and others, insult or talk down to you: never How often does anyone, including family, friends and others, threaten you with harm: never How often does anyone, including family, friends and others, scream or curse at you: never Little interest or pleasure in doing things: not at all Feeling down, depressed, or hopeless: not at all service: No Exam Narrative: Exam Narrative: Constitutional: Well-developed, well-nourished, no acute distress. HEENT: Normocephalic, atraumatic. Neck: Normal range of motion. Nontender. Supple. Heart: Regular. No murmurs. Normal rate. Intact distal pulses. Lungs: Clear to auscultation. No chest discomfort. No wheezes, rhonchi, or rales. Abdomen: Normal bowel sounds. Nontender. No rebound tenderness. Genitalia: Deferred. Back: No midline tenderness. Normal range of motion. Extremities: Normal range of motion. No injury. Skin: Intact. No rash. Warm. No erythema or pallor. Neurologic: No altered sensation. No weakness. Alert and oriented. Psychiatric: No suicidality. No anxiety or depression. No insomnia. Nursing notes and vitals signs are reviewed. Const: Vital Signs, click to edit/add: Vital Signs - 24 hr 05/06/24 17:19 Temperature 97.5 F L Pulse Rate [Right Pulse Oximeter] 74 Respiratory Rate 18 Blood Pressure [Ri ght Upper Arm] 123/78 Pulse Oximetry 99 Oxygen Delivery Me thod Room Air Course Vital Signs Vital signs: Initial Vital Signs Temperature 97.5 F L 05/06/24 17:19 Temperature Source Temporal Artery Scan 05/06/24 17:19 Pulse Rate 74 05/06/24 17:19 Pulse Rhythm Regular 05/06/24 17:19 Respiratory Rate 18 05/06/24 17:19 Blood Pressure 123/78 05/06/24 17:19 Blood Pressure Mean 93 05/06/24 17:19 Blood Pressure Position Sitting 05/06/24 17:19 Pulse Oximetry 99 05/06/24 17:19 Oxygen Delivery Method Room Air 05/06/24 17:19 Vital Signs Temperature 97.5 F L 05/06/24 17:19 Pulse Rate 74 05/06/24 17:19 Respiratory Rate 18 05/06/24 17:19 Blood Pressure 123/78 05/06/24 17:19 Pulse Oximetry 99 05/06/24 17:19 Oxygen Delivery Method Room Air 05/06/24 17:19 Temperature 97.5 F L 05/06/24 17:19 Pulse Rate 74 05/06/24 17:19 Respiratory Rate 18 05/06/24 17:19 Blood Pressure 123/78 05/06/24 17:19 Pulse Oximetry 99 05/06/24 17:19 Oxygen Delivery Method Room Air 05/06/24 17:19 MDM - SOB/Dyspnea MDM Narrative Medical decision making narrative: This patient comes in stating that she feels short of breath. She has a completely normal exam and has normal vital signs. She is not using any accessory muscles for breathing and is able to speak in complete sentences. She does have a long list of problems and is seeing several specialists regarding various symptoms. She states that her main reason for visit here is to rule out a pneumonia. So I did do an x-ray which shows no acute findings. This patient is okay to be discharged home. I gave reassurance is to her regarding her exam and vital signs. I did provide a prescription for a a steroid which may help her feel better temporarily. Imaging Data Chest x-ray: Radiologist's impression: No acute findings and no significant change from the prior exam. Discharge Plan Discharge Clinical Impression: Shortness of breath Patient Disposition: Home, Self-Care Condition: Stable Additional Instructions: Take medication as prescribed. Follow-up with primary physicians as scheduled and needed. Return if worsening. Prescriptions: New methylprednisolone [Medrol (Avery)] 4 mg tablets,dose pack See Rx Instructions .ROUTE .COMPLEX Qty: 21 0RF Rx Instructions: orally per package directions No Action albuterol sulfate 90 mcg/actuation HFA aerosol inhaler 2 puff inhalation Q6H PRN (Reason: shortness of breath or wheezing) Qty: 6.7 2RF hydroxyzine HCl 25 mg tablet 25 - 50 mg PO Q4-6H PRN (Reason: anxiety) Qty: 30 0RF Hold Instructions: Pt stopped Rx Instructions: take 1-2 tablets every 4-6 hours as needed for anxiety omeprazole 20 mg capsule,delayed release(DR/EC) 20 mg PO QDAY Xulane 150-35 mcg/24 hr patch weekly 1 patch transdermal Q7D Qty: 9 3RF Rx Instructions: apply once weekly for 3 weeks of a 4-week cycle Follow Up/Referrals: Marilia Uriostegui PA-C [Primary Care Provider] - Stand Alone Forms: [employer] Info Instructions
--- OUTSIDE RECORDS SUMMARY | 2024-05-06 18:31 | XMS_ITS | Continuity of Care Document ---
Author Organization [facility] Address [address] [address] [place] [address] Phone Care Team Providers Care Director Trial Name Role Phone Isauro Somers MD Unavailable Unavailabl e Allergies, Adverse Reactions, Alerts Substance Reaction Status Criticality No Known Allergies Active No Inform ation Medications Medication Instructions Dosage Effective Dates (start - stop) Status Comments omeprazole 20 mg tablet,delayed release - Active Tums 300 mg (as calcium carbonate 750 mg) chewable tablet as needed - Active Xulane 150 mcg-35 mcg/24 hr transdermal patch apply 1 patch by transdermal route every week 1.00 patch - Active Procedures Procedure Date Office Cons New/estab Mod Advance Directives Directive Yes / No Effective Date File Name No Information Encounters Encounter Description Practice Location Reason(s) For Visit Diagnoses Date Provider Providers Copied on Encounter [facility], [address] [address], [place], [place], [id number], [place] tel:[phone] [facility] No Information [address] [facility], [facility] [address], [place], [place], [id number], [place]. tel:[phone] Office Cons New/estab Mod [facility], [address] [address], [place], [place], [id number], [place] tel:[phone] [facility] GI Symptoms or Concerns (chief complaint) Gastroesophagea l reflux disease, unspecified whether esophagitis presentDysphagi a, unspecified typeConstipatio n, unspecified constipation type [address] [address], [place], [place], [id number], [place]. tel:[phone] Referring Provider: Marilia HAWKINS, [address] [place], [address]. tel:[phone] [facility], [address] [address], [place], [place], [id number], [place] tel:[phone] [facility] No Information [address] [facility] [address], [place], [id number], [place]. tel:[phone] Family History Family Member Type Diagnosis Age At Onset Sister Problem (finding) Thyroid disorder Father Problem (finding) Thyroid disorder Immunizations Vaccine Date Status Comments meningococcal polysaccharide (groups A, C, Y and W-135) diphtheria toxoid conjugate vaccine (MCV4P) administered Note: [facility] bi-direct ional interface ; Source: Other Registry SARS-COV-2 (COVID-19) vaccin e, vector non-replicating, recombinant spike protein-Ad26, preservative free, 0.5 mL administered Note: [facility] bi- directional interface ; Source: Other Registry varicella virus vaccine administered Note : [facility] bi-directional interface ; Source: Other Registry measles, mumps and rubella v irus vaccine administered Note: [facility] bi-direct ional interface ; Source: Other Registry diphtheria, tetanus toxoids and acellular pertussis vaccine administered Note: [facility] b i-directional interface ; Source: Other Registry Haemophilus influenzae type b vaccine, conjugate unspecified formulation administered Note: [facility] bi-direct ional interface ; Source: Other Registry diphtheria, tetanus toxoids and acellular pertussis vaccine administered Note: [facility] b i-directional interface ; Source: Other Registry measles, mumps and rubella v irus vaccine administered Note: [facility] bi-direct ional interface ; Source: Other Registry varicella virus vaccine administered Note : [facility] bi-directional interface ; Source: Other Registry Haemophilus influenzae type b vaccine, conjugate unspecified formulation administered Note: [facility] bi-direct ional interface ; Source: Other Registry hepatitis B vaccine, unspeci fied formulation administered Note: [facility] bi-direct ional interface ; Source: Other Registry diphtheria, tetanus toxoids and acellular pertussis vaccine administered Note: [facility] b i-directional interface ; Source: Other Registry Haemophilus influenzae type b vaccine, conjugate unspecified formulation administered Note: [facility] bi-direct ional interface ; Source: Other Registry diphtheria, tetanus toxoids and acellular pertussis vaccine administered Note: [facility] b i-directional interface ; Source: Other Registry Haemophilus influenzae type b vaccine, conjugate unspecified formulation administered Note: [facility] bi-direct ional interface ; Source: Other Registry hepatitis B vaccine, unspeci fied formulation administered Note: [facility] bi-direct ional interface ; Source: Other Registry diphtheria, tetanus toxoids and acellular pertussis vaccine administered Note: [facility] b i-directional interface ; Source: Other Registry hepatitis B vaccine, unspeci fied formulation administered Note: [facility] bi-direct ional interface ; Source: Other Registry Payers Payer name Insurance type Covered green party ID Authoriza tion(s) [facility] [id number] Social History Type Description Quantity Date Captured Comments Sex Female Smoking Status No Information Chief Complaint And Reason For Visit No Information Reason For Referral Reason For Referral No Information Plan Of Treatment Date Type Action Status Referral Ordered: Esoph Motility Study; Appointment date/timeframe: 05/26/2024 ordered Appointment Davina Cast BOOKED Appointment Davina Cast BOOKED History Of Present Illness Encounter Date Complaint History Of Prese nt Illness GI Symptoms or Concerns Davina Serene is a 23-year-old female who is seen in consultation at the request of Marilia MARTINEZ for dysphagia, GERD, constipation. Outside records reviewed in preparation for this visit including an office visit note dated 03/26/2024. The patient states that she has been struggling with bothersome symptoms including acid reflux and dysphagia for the past 6 months. She states that she did undergo a workup including upper endoscopy she believes was normal. She also believes that she had a swallow study completed that was unremarkable. She describes both heartburn and regurgitation for which she has tried a variety of medications. She has been on omeprazole in the past for several weeks at a time. She recently started taking omeprazole 20 milligrams daily again and within the last couple of days has found that this has been beneficial for her symptoms. While the heartburn has improved, she continues to report dysphagia intermittently. She states that at [facility] Functional Status Date Functional Assessmen t No Information Instructions Date Instruction Additional Infor sarah 1. We will request r ecords of your upper endoscopy and swallow study to review. 2. Esophageal manometry testing to evaluate difficulty swallowing. 3. Keep apt with speech pathologist as scheduled next month. 4. Continue Omeprazole 20mg once daily. You may use Famotidine as needed for breakthrough symptoms or take before bed if you begin having nighttime symptoms again. 5. Review information on dietary modifications for acid reflux. In general continue to avoid spicy foods, citrus, tomato based sauces, alcohol, caffeine. Avoid NSAIDs (Ibuprofen, Motrin, Aleve). Tylenol is a safe alternative. 6. Keep apt with speech pathologist as scheduled next month. 7. For constipation, work on gradually incorporating more fiber into your diet, aim for 25-30g/day. Start a fiber supplement as well. I might suggest fiber gummies for you. Other options include Citrucel or Metamucil. 8. Miralax 1/2-1 capful per day. 9. Follow-up in [facility] Clinic after manometry and COMMUNITY SPORTS COORDINATOR apt. Message or call with any questions or concerns in the meantime [phone]. Related to Gastroesophageal reflux disease, unspecified whether esophagitis present High Fiber Diet Related to Const ipation, unspecified constipation type Assessments Type Assessment Date No Information Patient Care Teams Name Effective Dates (start - stop) Status Members No Information
--- OUTSIDE RECORDS SUMMARY | 2024-05-06 18:31 | XMS_ITS | Clinical Summary ---
Author Organization Formerly Named [facility] Address [address] [place] [address] Phone Care Team Providers Care Archival Studies Professor Name Role Phone Unavailable Primary Care Provider Unavailabl e Source Comments [employer] is fully rolled out on [employer]. Last update 04/16/09.[facility] Active Problems Problem Noted Date Diagnosed Date Dizziness and giddiness 12/24/2023 Positional lightheadedness 12/24/2023 Tachycardia 12/24/2023 Social History Tobacco Use Types Packs/Day Years Used Date Smoking Tobacco: Never Assessed Sex and Gender Information Value Date Recorded Sex Assigned at Not on file Gender Identity Not on file Sexual Orientation Not on file Plan of Treatment Health Maintenance Due Date Last Done Comments Dental Oral Exam 1999 Dental Prophylaxis 1999 Dental X-Ray: Bitewings 1999 Chlamydia & Gonorrhea Screening 2011 Periodontal Maintenance 2013 HIV Screening 2014 PREVENTATIVE VISIT 2017 HEALTH MAINTENANCE PROTOCOL 2018 Cervical Cancer Screening Age 21-29 2020 INFLUENZA VACCINE 06/12/2023 TD/TDAP ADULTS 07/07/2023 07/07/2013, 04/13, 12/11/2000, Additional history exists COVID-19 Vaccine ( season) 2023 03/09/2021 Imm: HepB Completed 01/23/2000, 08/12, 1999 HIB Completed 12/11/2000, 01/10, 1999, Additional history exists HPV Completed 03/19/2014, 02/2013, 06/24/2013 Imm: Pneumonia Peds or At-Risk less than 65 years Aged Out No longer ana gible based on patient's age to complete this topic RSV Infant Immunoglobulin Aged Out No longer eligible based on patient's age to complete this topic
--- OUTSIDE RECORDS SUMMARY | 2024-05-06 18:31 | XMS_ITS | Referral Summary ---
Author Organization [facility] Address [address] [place] [address] Phone Care Team Providers Care Squeezer Operator Name Role Phone Unavailable Primary Care Provider Unavailabl e Source Comments Goleta Byban is fully rolled out on [employer]. Last update 04/16/09.[facility] Active Problems Problem Noted Date Diagnosed Date Dizziness and giddiness 12/24/2023 Positional lightheadedness 12/24/2023 Tachycardia 12/24/2023 Social History Tobacco Use Types Packs/Day Years Used Date Smoking Tobacco: Never Assessed Sex and Gender Information Value Date Recorded Sex Assigned at Not on file Gender Identity Not on file Sexual Orientation Not on file Plan of Treatment Not on file
== END 2024-05-06 18:56 | disposition home or self-care (01) ==
PROVIDERS: Emergency Provider Emergency Medicine Emergency Medical Services; PCP Physician Assistant Medical
DX: R06.02 Shortness of breath (principal)
CPT/HCPCS: 71046; 99283; 99284

== ENCOUNTER 2024-07-17 14:42 | Outpatient (CLI) | payer BC, SELFPAY ==
--- OUTSIDE RECORDS SUMMARY | 2024-07-17 14:45 | XMS_ITS | Clinical Summary ---
Author Organization [facility] Address [place], [place] [address] Care Team Providers Care Kiln Door Repairer Name Role Phone Caroline Moyer MD Primary Care Provider [phone] Encounters Date Type Department Care Team Description 07/03/2024 9:00 AM CDT - 07/03/2024 11:59 PM CDT Hospital Encounter [facility] [address] [facility] [address] [place] [address] Marilia Uriostegui PA-C Sullivan, Eleanor K, COMBUSTION ANALYST 07/03/2024 Travel 05/30/2024 7:45 AM CDT - 05/30/2024 11:59 PM CDT Hospital Encounter [facility] [address] [facility] [address] [place] [address] Marilia Uriostegui PA-C Sullivan, Eleanor K, COMBUSTION ANALYST Encounter for person encountering health services 05/30/2024 Travel from Last 3 Months Social History Tobacco Use Types Packs/Day Years Used Date Smoking Tobacco: Never Assessed Social Connections Answer Date Recorded Frequency of Communication with Friends and Fami ly Not on file 08/03/2023 Sex and Gender Information Value Date Recorded Sex Assigned at Not on file Gender Identity Not on file Sexual Orientation Not on file Plan of Treatment Upcoming Encounters Date Type Department Care Team (Late st Contact Info) Description 07/28/2024 8:30 AM CDT Appointment [facility] [address] [facility] [address] [place] [address] Imani Wilder, COMBUSTION ANALYST [address] [facility] [address] [place], [place] [address] 08/04/2024 8:30 AM CDT Appointment [facility] [address] [facility] [address] [place], [place] [id number] Imani Wilder, COMBUSTION ANALYST [address] [facility] [address] [place], [place] [address] Health Maintenance Due Date Last Done Comments Tdap 2010 Depression screening for age 12+ 2011 HIV for age 15-65 2014 HPV series for age 9-26 (1 - 3-dose series) 2014 BMI (ht and wt on same day) for age 18+ 2017 Hepatitis C screening for ag e 18-79 2017 Tetanus booster 2019 COVID-19 vaccine series (2022- season) 2024 03/09/2021 Influenza for age 9-49 07/13/2024 Pap test for age 21-65 01/04/2025 01/04/2022 Pneumococcal series for age 6-64 Aged Out No longer eligible based on patient's age to complete this topic Procedures Procedure Name Priority Date/Time Associated Diagnosis Comments TRIAGE CLINICIAN THIN PREP PAP SCREEN IMAGED Routine 01/04/2022 4:00 PM SHEET METAL ENGINEER from Last 3 Months or Most Recently Relevant to Health Maintenance Results * TRIAGE CLINICIAN THIN PREP PAP SCREEN IMAGED (01/04/2022 4:00 PM SHEET METAL ENGINEER) Case Report Gynecologic Cytology Report ? Case: [id number] ? Authorizing Provider: ??Marilia Uriostegui PA-C ?Collected: ? 01/04/2022 1600 ? Ordering Location: ? [facility] ?Received: ?01/06/2022 0928 ? First Screen: ?Nimisha Fonseca ? Specimen: ?TRIAGE CLINICIAN ThinPrep Vial Screening, Cervical/Vaginal ? 01/17/2022 10:46 AM [facility] INTERPRETATION/ RESULT NEGATIVE FOR INTRAEPITHELIAL LESION OR MALIGNANCY (NIL) (none) 01/17/2022 10:46 AM [facility] IMEN ADEQUACY Satisfactory for evaluation Endocervical component present 01/17/2022 10:46 AM [facility] HPV REQUEST HPV if ASCUS 01/17/2022 10:46 AM [facility] Additional Information 01/17/2022 10:46 AM [facility] Comment: Interpreted at [facility], Central Laboratory - [address], [place] [address] Automated Review Successful 01/17/2022 10:46 AM [facility] Comment:Specimen processed s uccessfully by automated railroad crossing protection maintainer device, ThinPrep Imaging System, [employer] Note The pap test is a screening technique, not a diagnostic procedure. It is used primarily to screen for squamous cancers and precursor lesions. Published studies have shown that it is subject to both false negative and false positive results. The pap test should not be used as the sole means to diagnose or exclude pre-malignant and malignant lesions. 01/17/2022 10:46 AM SHEET METAL ENGINEER [facility] [employer] LABORAT[facility]-C ENTRAL LABORATORY Other (Cervical/Vagina l) 01/04/2022 4:00 PM SHEET METAL ENGINEER 01/06/2022 9:28 AM SHEET METAL ENGINEER Marilia Urisotegui PA-C PATHOLOGY/CYTOLOGY [employer] [facility] [address] [place] [address], from Last 3 Months or Most Recently Relevant to Health Maintenance Care Teams Kiln Door Repairer Relationship Specialty Start Date End Date Caroline Moyer MD [address] [place] [address] PCP - General Emergency Medicine 07/06/23
--- OUTSIDE RECORDS SUMMARY | 2024-07-17 14:46 | XMS_ITS | Clinical Summary ---
Author Organization [facility] Address [address] [place] [address] Phone Care Team Providers Care Photo Optics Technician Name Role Phone Unavailable Primary Care Provider Unavailabl e Source Comments [employer] is fully rolled out on Cancer Genetics. Last update 04/16/09.[facility] Active Problems Problem Noted Date Diagnosed Date [...] & Gonorrhea Screening 2011 Periodontal Maintenance 2013 Imm: DTaP/Tdap (6 - Tdap) 07/08/20132012, 05/02/2004, 12/11/2000, Additional history exists HIV Screening 2014 PREVENTATIVE VISIT 2017 HEALTH MAINTENANCE PROTOCOL 2018 Cervical Cancer Screening Age 21-29 2020 Imm: COVID-19 ( season) 2024 03/09/2021 Imm: Flu (#1) 07/13/2024 Imm: Zoster (1 of 2) 2049 Imm: HepB Completed 01/23/2000, 08/12, 1999 Imm: Hib Completed 12/11/2000, 01/10, 1999, Additional history exists Imm: HPV Completed 03/19/2014, 02/2013, 06/24/2013 Imm: Meningitis Aged Out 05/11/2021 No longer el igible based on patient's age to complete this topic Imm: HepA Aged Out No longer eligi ble based on patient's age to complete this topic Imm: Pneumonia Peds or At-Risk less than 65 years Aged Out No longer ana gible based on patient's age to complete this topic
--- OUTSIDE RECORDS SUMMARY | 2024-07-17 14:46 | XMS_ITS | Referral Summary ---
Author Organization [facility] Address [address] [place] [address] Phone Care Team Providers Care Near Eastern Archaeology Lecturer Name Role Phone Unavailable Primary Care Provider Unavailabl e Source Comments [employer] is fully rolled out on [employer]. Last update 04/16/09.[facility] Active Problems Problem Noted Date Diagnosed Date [...]
== END 2024-07-17 14:43 | disposition home or self-care (01) ==
PROVIDERS: PCP Physician Assistant Medical; Visit Provider Physician Assistant Medical
DX: D64.9 Anemia, unspecified (principal); L29.9 Pruritus, unspecified; L30.9 Dermatitis, unspecified; R53.83 Other fatigue
CPT/HCPCS: 82746; 83540; 83550; 86003; 86041

== ENCOUNTER 2024-07-21 18:50 | Outpatient (CLI) | payer BC, SELFPAY | END 2024-07-21 18:51 | disposition home or self-care (01) | LOC: LKVREF 18:51 | PROVIDERS: PCP Physician Assistant Medical; Visit Provider Physician Assistant Medical | DX: D64.9 Anemia, unspecified (principal) | CPT/HCPCS: 82607 ==

== ENCOUNTER 2024-07-28 11:44 | Outpatient (CLI) | payer BC, SELFPAY ==
--- OUTSIDE RECORDS SUMMARY | 2024-08-01 08:35 | XMS_ITS | Clinical Summary ---
Author Organization [employer] [facility] [facility] Address [place], [place] [address] Care Team Providers Care Parts Sales Advisor Name Role Phone Caroline Moyer MD Primary Care Provider + [phone] Encounters Date Type Department Care Team Description 07/28/2024 8:30 AM CDT - 07/28/2024 11:59 PM CDT Hospital Encounter [facility] [id number] [place] [address] Marilia Uriostegui PA-C Sullivan, Eleanor K, TELEVISION RECEIVER ANALYZER 07/28/2024 Telephone [facility] [address] [address] Imani Wilder, TELEVISION RECEIVER ANALYZER Modified Barium Swallow Study (Place order for repeat Modified Barium Swallow Study.) 07/28/2024 Travel 07/03/2024 9:00 AM CDT - 07/03/2024 11:59 PM CDT Hospital Encounter [facility] [address] [facility] [address] [place] [address] Marilia Uriostegui PA-C Sullivan, Eleanor K, TELEVISION RECEIVER ANALYZER 07/03/2024 Travel 05/30/2024 7:45 AM CDT - 05/30/2024 11:59 PM CDT Hospital Encounter [facility] [address] [facility] [address] [place] [address] Marilia Uriostegui PA-C Sullivan, Eleanor K, TELEVISION RECEIVER ANALYZER Encounter for person encountering health services 05/30/2024 [...] Care Team (Late st Contact Info) Description 08/04/2024 8:30 AM CDT Appointment [facility] [address] [facility] [address] [place], [place] [id number] Imani Wilder, TELEVISION RECEIVER ANALYZER [address] [facility] [address] [place], [place] [id number] Health Maintenance Due Date Last Done Comments Tdap 2010 Depression screening for age 12+ 2011 HIV for age 15-65 2014 HPV series for age 9-26 (1 - 3-dose series) 2014 BMI (ht and wt on same day) for age 18+ 2017 Hepatitis C screening for ag e 18-79 2017 Tetanus booster 2019 COVID-19 vaccine series ( season) 2024 03/09/2021 Influenza for age 9-49 07/13/2024 Pap test for age 21-65 01/04/2025 01/04/2022 Pneumococcal series for age 6-64 Aged Out No longer eligible based on patient's age to complete this topic Procedures Procedure Name Priority Date/Time Associated Diagnosis Comments END WORKER THIN PREP PAP SCREEN IMAGED Routine 01/04/2022 4:00 PM [employer] from Last 3 Months or Most Recently Relevant to Health Maintenance Results * END WORKER THIN PREP PAP SCREEN IMAGED (01/04/2022 4:00 PM [employer]) Case Report Gynecologic Cytology Report ? Case: [id number] ? Authorizing Provider: ??Marilia Uriostegui PA-C ?Collected: ? 01/04/2022 1600 ? Ordering Location: ? [facility] ?Received: ?01/06/2022 0928 ? First Screen: ?Nimisha Fonseca ? Specimen: ?END WORKER ThinPrep Vial Screening, Cervical/Vaginal ? 01/17/2022 10:46 AM [facility] INTERPRETATION/ RESULT NEGATIVE FOR INTRAEPITHELIAL LESION OR MALIGNANCY (NIL) (none) 01/17/2022 10:46 AM [facility] IMEN ADEQUACY Satisfactory for evaluation Endocervical component present 01/17/2022 10:46 AM [facility] HPV REQUEST HPV if ASCUS 01/17/2022 10:46 AM [facility] Additional Information 01/17/2022 10:46 AM [facility] Comment: Interpreted at [facility] Laboratory - [address], [place] [address] Automated Review Successful 01/17/2022 10:46 AM [facility] Comment:Specimen processed s uccessfully by automated conveyor belt repairer device, ThinPrep Imaging System, [employer] Note The pap test is a screening technique, not a diagnostic procedure. It is used primarily to screen for squamous cancers and precursor lesions. Published studies have shown that it is subject to both false negative and false positive results. The pap test should not be used as the sole means to diagnose or exclude pre-malignant and malignant lesions. 01/17/2022 10:46 AM [employer] [facility] Other (Cervical/Vagina l) 01/04/2022 4:00 PM [employer] 01/06/2022 9:28 AM [employer] Marilia Uriostegui PA-C PATHOLOGY/CYTOLOGY [facility] [address] [place] [address], from Last 3 Months or Most Recently Relevant to Health Maintenance Care Teams Parts Sales Advisor Relationship Specialty Start Date End Date Caroline Moyer MD [address] [place] [address] PCP - General Emergency Medicine 07/06/23
--- OUTSIDE RECORDS SUMMARY | 2024-08-01 08:36 | XMS_ITS | Clinical Summary ---
Author Organization [facility] Address [address] [place] [address] Phone Care Team Providers Care Wagon Driver Name Role Phone Unavailable Primary Care Provider Unavailabl e Source Comments [employer] is fully rolled out on [employer]. Last update 04/16/09.[facility] Active Problems Problem Noted Date Diagnosed [...] Dental Prophylaxis 1999 Dental X-Ray: Bitewings 1999 Periodontal Maintenance 2013 Imm: DTaP/Tdap (6 - [...] Additional history exists Imm: HPV Completed 03/19/2014, 100 02/2013, 06/24/2013 Imm: Meningitis Aged Out 05/11/2021 [...]
--- OUTSIDE RECORDS SUMMARY | 2024-08-01 08:36 | XMS_ITS | Referral Summary ---
Author Organization [facility] Address [address] [place] [address] Phone Care Team Providers Care Sheep Farm Worker Name Role Phone Unavailable Primary Care Provider Unavailabl e Source Comments [employer] is fully rolled out on [employer]. Last update 04/16/09.[facility] Active Problems Problem Noted Date Diagnosed Date [...]
== END 2024-07-28 11:45 | disposition home or self-care (01) ==
LOC: NFLDREF 08-01 08:34
PROVIDERS: PCP Physician Assistant Medical; Referring Provider Physician Assistant Medical; Visit Provider Physician Assistant Medical
DX: E23.0 Hypopituitarism (principal)
CPT/HCPCS: 83520

== ENCOUNTER 2024-12-08 11:33 | Outpatient (CLI) | payer BC, SELFPAY ==
[2024-12-08 23:41] LABS: Bacterial Vaginosis* Negative (Negative); Candida glab/krus NOT DETECTED (No Detected); Candida species NOT DETECTED (No Detected); Trichomonas vaginalis NOT DETECTED (No Detected)
[2024-12-09 03:13] LABS: Chlamydia DNA Amplified* NOT DETECTED (No Detected); GC DNA Amplified* NOT DETECTED (No Detected)
[2024-12-10 16:22] LABS: HPV Source Cervix; HPV, High Risk by TMA Not Detected
== END 2024-12-08 11:34 | disposition home or self-care (01) ==
PROVIDERS: PCP Physician Assistant Medical; Visit Provider Physician Assistant
DX: N89.8 Other specified noninflammatory disorders of vagina (principal)
CPT/HCPCS: 81513; 87481; 87491; 87591; 87624; 87625; 87661; 88141; 88142

== ENCOUNTER 2024-12-22 15:16 | Outpatient (CLI) | payer BC, SELFPAY | END 2024-12-22 15:17 | disposition home or self-care (01) | LOC: NFLDREF 12-26 03:20 | PROVIDERS: PCP Physician Assistant Medical; Referring Provider Physician Assistant Medical; Visit Provider Physician Assistant Medical | DX: K13.0 Diseases of lips (principal); G89.29 Other chronic pain; M25.542 Pain in joints of left hand; M25.541 Pain in joints of right hand | CPT/HCPCS: 86140; 86200; 86235 ==

== ENCOUNTER 2024-12-24 09:26 | Outpatient (CLI) | payer BC, SELFPAY | END 2024-12-24 09:27 | disposition home or self-care (01) | LOC: NFLDREF 12-27 02:34 | PROVIDERS: PCP Physician Assistant Medical; Referring Provider Physician Assistant Medical; Visit Provider Physician Assistant Medical | DX: N30.00 Acute cystitis without hematuria (principal) | CPT/HCPCS: 87086 ==

== ENCOUNTER 2025-01-05 11:53 | Outpatient (CLI) | payer BC, SELFPAY | END 2025-01-05 11:54 | disposition home or self-care (01) | LOC: NFLDREF 01-07 06:35 | PROVIDERS: PCP Physician Assistant Medical; Referring Provider Physician Assistant Medical; Visit Provider Physician Assistant Medical | DX: N30.00 Acute cystitis without hematuria (principal); K13.0 Diseases of lips; L40.9 Psoriasis, unspecified; R13.10 Dysphagia, unspecified | CPT/HCPCS: 87086 ==

== ENCOUNTER 2025-01-21 11:30 | Outpatient (CLI) | payer BC, SELFPAY ==
[2025-01-22 07:46] LABS: Chlamydia DNA Amplified* NOT DETECTED (No Detected); GC DNA Amplified* NOT DETECTED (No Detected)
== END 2025-01-21 11:31 | disposition home or self-care (01) ==
PROVIDERS: PCP Physician Assistant Medical; Visit Provider Physician Assistant Medical
DX: N30.00 Acute cystitis without hematuria (principal); N89.8 Other specified noninflammatory disorders of vagina; Z11.3 Encounter for screening for infections with a predominantly sexual mode of transmission
CPT/HCPCS: 86703; 86803; 87086; 87491; 87591

== ENCOUNTER 2025-01-28 08:16 | Outpatient (CLI) | payer BC, SELFPAY ==
--- NOTE | 2025-01-28 08:30 | CRLHL7_ITS ---
For Patients: As a result of the Century Cures Act, medical imaging exams and procedure reports are released immediately into your electronic medical record. You may view this report before your referring provider. If you have questions, please contact your health care provider. Indication: Technique: Performed without IV contrast Comparison: None available Findings: Frontal sinuses: Clear. Ethmoid sinuses: Clear. Maxillary sinuses: Lobular nasal polyp is present within the left maxillary sinus measuring 2.8 x 1.5 cm. Clear right maxillary sinus. The maxillary sinus drainage pathways are patent on both sides. Sphenoid sinuses: Clear, including both sphenoethmoidal recesses. Nasal Cavity: Atrophy of the left-sided nasal turbinate mucosa. No nasal polyps. Nasal septum is midline. Mild degenerative changes at the right temporomandibular joint. Impression: 1. 2.8 cm mucous retention cyst left maxillary sinus. 2. Remaining sinuses are clear. Midline nasal septum. No polyps. Please note that all CT scans at this facility use dose modulation, iterative reconstruction, and/or weight-based dosing when appropriate to reduce radiation dose to as low as reasonably achievable. Dictated by Tito Nunez MD @ 01/28/2025 11:43:31 AM (Electronically Signed)
--- NOTE | 2025-01-28 09:15 | CRLHL7_ITS ---
For Patients: As a result of the Century Cures Act, medical imaging exams and procedure reports are released immediately into your electronic medical record. You may view this report before your referring provider. If you have questions, please contact your health care provider. INDICATION: Dysphagia, Rule out aspiration TECHNIQUE: Modified barium swallow. Fluoroscopic time 2.03 minutes. FINDINGS/IMPRESSION: No laryngeal penetration or aspiration. Normal transit of contrast through the stomach. No obstruction or stricture. No diverticulum. Normal piriform sinuses and vallecula. Contrast pools in the lateral aspect of the mouth adjacent to the tongue. Initiation of the swallowing mechanism is difficult. Dictated by Tito Nunez MD @ 01/28/2025 9:53:30 AM (Electronically Signed)
--- NOTE | 2025-01-30 15:47 | SLP.MBS ---
COMMERCIAL RELATIONSHIP MANAGER Modified Barium Swallow COMMERCIAL RELATIONSHIP MANAGER Modified Barium Swallow Eval Start: 01/28/25 11:49 Text: Status: Discharge Freq: Protocol: Document 01/28/25 11:50 YEIMY (Rec: 01/28/25 12:14 YEIMY [id number]) E-signed By ROMULO Bain Modified Barium Swallow Evaluation Evaluation Reason for Referral Rule out aspiration Medical Diagnosis Dysphagia, unspecified R13.10 Treatment Diagnosis Oral dysphagia Date of Order 12/26/24 Type of Referral Evaluation Onset of Patient's Problem Patient estimated the start of her dysphagia as summer Pertinent Medical History PMH includes GERD, fatigue, dysphagia, neoplasm of the neck, ADD, and narcolepsy. In 2023, patient completed EGD and esophageal manometry which both were normal. She had a MBSS on 11/14/23 and one outpatient speech therapy session to help give strategies for swallow initiation with liquids (bolus hold and straw sips). She continues to have issues with swallowing, especially liquids and cannot drink large amounts at a time. She is experiencing difficulty with dehydration due to this issue. Medications Reviewed Hearing Status WNL Vision Status Glasses Subjective/Pain Comment No reported pain today. Patient is feeling frustrated with her swallowing. She has done swallow exercises in the past which did not help and was also given a referral in the past to [place] for vocal fold dysfunction (VFD) but did not follow up with that referral. Assessment/Impressions ASSESSMENT Oral motor exam: WNL Trials of thin, puree and solid were administered under fluoroscopy. Thin: order of presentation 1 spoon, 2 cup, 3 straw, 6 consecutive straw. Oral phase: with spoon, bolus hold intact but piecemeal swallowing of bolus. With cup and straw sips , poor bolus control with over 50% of bolus pooling in bilateral lateral sulci and piecemeal swallowing. Pharyngeal phase: Swallow was triggered at the valleculae with no penetration or aspiration, good pharyngeal stripping with no residue. Puree: order of presentation 4 ; self-fed. Oral phase: piecemeal swallowing. Pharyngeal phase: Swallow was triggered at the valleculae with no penetration or aspiration, good pharyngeal stripping with no residue. Solid: order of presentation 5 ; self-fed. Oral phase: piecemeal swallowing. Pharyngeal phase: Swallow was triggered at the valleculae with no penetration or aspiration, good pharyngeal stripping with no residue. IMPRESSION A video swallow study was completed per provider orders. Davina has experienced difficulty swallowing liquids since summer and has chronic issues with constipation and dehydration because of her swallowing problems. She has also never been able to take pills, so needs to crush medications or get in liquid or gummy form. Under fluoroscopy, patient continues to present with disordered oral phase of the swallow, especially with liquids, despite no oral motor weakness or incoordination. Patient has normal oral hold with teaspoon of thin liquids, however, with cup and straw sips she has poor bolus control with a large portion of the bolus pooling into the lateral sulci with piecemeal swallowing of the bolus. Piecemeal deglutition was noted across consistencies. Once the swallow is triggered, the pharyngeal phase of the swallow remains intact with no penetration or aspiration and no pharyngeal residue. In the past patient was referred to [place] for possible vocal cord dysfunction but she did not follow up because they wanted her to repeat many of the GI tests she has already completed. Recommend patient continue with a Regular diet with thin liquids. Patient was given options to further assess her oral swallowing issues which included an OT eval for sensory assessment and pill swallowing program at [facility] and/ or assessment at the [facility] in [place] which specializes in eating and feeding disorders. Patient would also benefit from a voice assessment with a speech pathologist who specialized in voice/vocal fold dysfunction. Goals/Functional Outcomes Patient will understand results to todays assessment and recommendations. GOAL MET 01/28/25. Modified Barium Swallow Education Education Topics Therapist Signature/License Number Morris Carrasco MS CCC-COMMERCIAL RELATIONSHIP MANAGER # [id number] Speech/Language Pathology Billing Units Billing Units Eval Swallow Motion Fluoro 1
== END 2025-01-28 08:17 | disposition home or self-care (01) ==
LOC: CT 08:17
PROVIDERS: PCP Physician Assistant Medical; Visit Provider Otolaryngology
DX: J32.9 Chronic sinusitis, unspecified (principal); J34.1 Cyst and mucocele of nose and nasal sinus; R13.10 Dysphagia, unspecified
CPT/HCPCS: 70486; 74230; 92611

== ENCOUNTER 2025-02-11 08:55 | Outpatient (CLI) | payer BC, SELFPAY | END 2025-02-11 08:56 | disposition home or self-care (01) | LOC: NFLDREF 02-15 06:20 | PROVIDERS: PCP Physician Assistant Medical; Referring Provider Physician Assistant Medical; Visit Provider Physician Assistant | DX: R35.0 Frequency of micturition (principal); N39.0 Urinary tract infection, site not specified; N89.8 Other specified noninflammatory disorders of vagina; B37.9 Candidiasis, unspecified; N76.0 Acute vaginitis; B96.89 Other specified bacterial agents as the cause of diseases classified elsewhere | CPT/HCPCS: 87086 ==

== ENCOUNTER 2025-02-13 09:15 | Outpatient (CLI) | payer BC, SELFPAY | END 2025-02-13 09:16 | disposition home or self-care (01) | PROVIDERS: PCP Physician Assistant Medical; Referring Provider Physician Assistant Medical; Visit Provider Nurse Practitioner Family | DX: M54.9 Dorsalgia, unspecified (principal) | CPT/HCPCS: 87086 ==

== ENCOUNTER 2025-02-19 14:16 | Outpatient (CLI) | payer BC, SELFPAY ==
[2025-02-19 22:46] LABS: Bacterial Vaginosis* Negative (Negative); Candida glab/krus NOT DETECTED (No Detected); Candida species NOT DETECTED (No Detected); Trichomonas vaginalis NOT DETECTED (No Detected)
[2025-02-19 23:08] LABS: Chlamydia DNA Amplified* NOT DETECTED (No Detected); GC DNA Amplified* NOT DETECTED (No Detected)
== END 2025-02-19 14:17 | disposition home or self-care (01) ==
PROVIDERS: PCP Physician Assistant Medical; Visit Provider Registered Nurse
DX: M54.50 Low back pain, unspecified (principal); N89.8 Other specified noninflammatory disorders of vagina; R10.2 Pelvic and perineal pain; Z11.3 Encounter for screening for infections with a predominantly sexual mode of transmission
CPT/HCPCS: 80053; 81513; 83690; 86140; 87086; 87109; 87481; 87491; 87591; 87661

== ENCOUNTER 2025-04-20 08:29 | Outpatient (CLI) | payer BC, SELFPAY | END 2025-04-20 08:30 | disposition home or self-care (01) | LOC: FRMREF 08:30 | PROVIDERS: PCP Physician Assistant Medical; Visit Provider Family Medicine | DX: R30.0 Dysuria (principal) | CPT/HCPCS: 87086 ==

== ENCOUNTER 2025-06-12 10:16 | Outpatient (CLI) | payer BC, SELFPAY ==
[2025-06-12 13:50] LABS: Vitamin D 25 Hydroxy* 34 ng/mL (30-80)
== END 2025-06-12 10:17 | disposition home or self-care (01) ==
LOC: NPINS 10:17
PROVIDERS: PCP Physician Assistant Medical; Visit Provider Physician Assistant
DX: Z79.899 Other long term (current) drug therapy (principal)
CPT/HCPCS: 82306; 82728; 84443

== ENCOUNTER 2025-07-01 11:03 | Outpatient (CLI) | payer BC, MEDICAID, SELFPAY ==
[2025-07-01 22:02] LABS: Free T4 Free Thyroxine* 0.81 ng/dL (0.70-1.85)
[2025-07-03 21:27] LABS: Total T4, Thyroxine 8.45 ug/dL (4.50-11.70)
== END 2025-07-01 11:04 | disposition home or self-care (01) ==
LOC: NPINS 11:04
PROVIDERS: PCP Physician Assistant Medical; Visit Provider Internal Medicine Endocrinology, Diabetes & Metabolism
DX: E23.7 Disorder of pituitary gland, unspecified (principal)
CPT/HCPCS: 84436; 84439; 84443

== ENCOUNTER 2025-08-24 10:50 | Outpatient (CLI) | payer MEDICAID, SELFPAY | END 2025-08-24 10:51 | disposition home or self-care (01) | PROVIDERS: PCP Physician Assistant Medical; Visit Provider Physician Assistant Medical | DX: R53.83 Other fatigue (principal) | CPT/HCPCS: 80053; 82747; 86140; 86431; 86812 ==

== ENCOUNTER 2025-10-12 15:05 | Outpatient (CLI) | payer MEDICAID, SELFPAY | END 2025-10-12 15:06 | disposition home or self-care (01) | PROVIDERS: PCP Physician Assistant Medical; Visit Provider Physician Assistant Medical | DX: D64.9 Anemia, unspecified (principal); E53.8 Deficiency of other specified B group vitamins; R53.83 Other fatigue | CPT/HCPCS: 81291; 82306; 82728; 82746; 86140 ==

== ENCOUNTER 2025-11-03 10:50 | Outpatient (CLI) | payer MEDICAID, SELFPAY | END 2025-11-03 10:51 | disposition home or self-care (01) | LOC: NFLDREF 11-09 08:42 | PROVIDERS: PCP Physician Assistant Medical; Referring Provider Physician Assistant Medical; Visit Provider Physician Assistant Medical | DX: Z15.89 Genetic susceptibility to other disease (principal) | CPT/HCPCS: 82607; 82747; 83090; 84207 ==